=== PATIENT | male | born 1950 | race Caucasian/White ===

== ENCOUNTER 2017-09-21 11:05 | Inpatient (IN) ==
[~2017-09-21 11:05] MED LIST: LEVOTHYROXINE 50 MCG PO SCH
[2017-09-21] MEDS ORDERED: Sod Chloride 0.9% Inj 1,000 ML IV.SIG ONE (11:29)
--- NOTE | 2017-09-21 11:49 | ED ---
HPI General Chief Complaint: Neuro Symptoms/Deficit Stated Complaint: Weakness Time Seen by Provider: 09/21/17 11:20 Source: patient, family and EMS Mode of arrival: EMS Limitations: altered mental status History of Present Illness HPI Narrative: 67-year-old male patient with history of previous seizures, diabetes, recent history of right ear infections with a ruptured eardrum on the right side, epistaxis, presents to the ER today brought in by family because over last weeks he has been declining sickly, having general weakness, today was lethargic, having trouble getting up on his own, and family states that his blood sugars have been high, he has not been giving himself insulin because he thinks that the infection is causing his blood sugars to be high. He has also had some left-sided weakness that family noticed since yesterday, and apparently has had this with his seizures in the past as well. They deny any recent fevers, chest pains, shortness of breath, vomiting, or other symptoms. Related Data Home Medications Medication Instructions Recorded Confirmed atorvastatin 80 mg PO DAILY 09/21/17 09/21/17 carbamazepine 200 mg PO TID 09/21/17 09/21/17 ciprofloxacin HCl [Cipro] 500 mg PO Q12H 09/21/17 09/21/17 ciprofloxacin-dexamethasone 5 drp RIGHT EAR BID 09/21/17 09/21/17 [Ciprodex] gabapentin 100 mg PO BID 09/21/17 09/21/17 insulin aspart U-100 24 unit SUB-Q DAILY 09/21/17 09/21/17 insulin aspart U-100 26 unit SUB-Q BID 09/21/17 09/21/17 insulin glargine 56 unit SUB-Q BID 09/21/17 09/21/17 levothyroxine 50 mcg PO DAILY 09/21/17 09/21/17 metformin 1,000 mg PO BID 09/21/17 09/21/17 Allergies Allergy/AdvReac Type Severity Reaction Status Date / Time No Known Allergies Allergy Unknown Uncoded 10/25/07 10:10 Review of Systems Except as stated in HPI: all other systems reviewed are negative (Limited because patient is a bit lethargic, information from family) [facility] Medical History Medical History Diabetes (Acute) High cholesterol (Acute) Hypertension (Acute) Hypothyroid (Acute) Seizure (Acute) Surgical History Surgical History History of placement of ear tubes (Acute) Social History Social History Substance History: No History of Abuse Smoking Status: Former smoker Tobacco Type: Smokeless Tobacco How Often Do You Have a Drink Containing Alcohol: Never Recent Travel in [facility] within the Last 8 Weeks: No Recent Out of Country Travel within the Last 8 Weeks: No Immunization History Tetanus Immunization: <5 Years Exam Narrative Exam Narrative: GENERAL: Well-developed elderly white male patient currently in moderate distress. Awake, lethargic. Appears to be oriented 3. SKIN: Focused skin assessment warm/dry. HEAD: Atraumatic. Normocephalic. EYES: Pupils equal and round. No scleral icterus. No injection or drainage. ENT: No nasal bleeding or discharge. Mucous membranes pink and moist. NECK: Trachea midline. No JVD. CARDIOVASCULAR: Regular rate and rhythm. No murmur appreciated. RESPIRATORY: No accessory muscle use. Clear to auscultation. Breath sounds equal bilaterally. GASTROINTESTINAL: Abdomen soft, non-tender, nondistended. Hepatic and splenic margins not palpable. MUSCULOSKELETAL: No obvious deformities. No clubbing. No cyanosis. No edema. NEUROLOGICAL: Awake and lethargic. No obvious cranial nerve deficits. Motor grossly within normal limits. Normal speech. PSYCHIATRIC: Appropriate mood and affect; insight and judgment poor. Course Hospital Course: Initial blood glucose was fairly elevated IV fluids are initiated in the ER. CT the brain did not show any signs of acute intracranial process was but does show sign of severe sinusitis. Lab work also shows leukocytosis of 14 with UTI , and IV antibiotics were initiated in the ER after cultures were done. Considering his left arm weakness, that the patient family states this started since last night, I am also putting him in for an aspirin just in case he may have some underlying stroke. EKG did not show any significant dysrhythmias or ST changes. He is reporting no chest pains. His troponin is mildly elevated. His BUN and creatinine is up as well, and troponin will need to be followed out. His ABG did show some mild acidosis, likely metabolic, and with anion gap , insulin was given in the ER. At this point, my plan would be to admit the patient for further evaluation and treatment. Case was discussed with [facility] resident service for admission. Initial Documented Vital Signs Temperature 98.6 F 09/21/17 11:09 Pulse Rate 95 H 09/21/17 11:09 Respiratory Rate 17 09/21/17 11:09 Blood Pressure 157/84 H 09/21/17 11:09 Pulse Oximetry 99 09/21/17 11:09 Last Documented Vital Signs Temperature 98.6 F 09/21/17 11:09 Pulse Rate 78 09/21/17 12:44 Respiratory Rate 16 09/21/17 12:44 Blood Pressure 174/84 H 09/21/17 12:44 Pulse Oximetry 100 09/21/17 12:44 Medical Decision Making Differential Diagnosis Differential Diagnosis: CVA versus sepsis versus electrolyte abnormalities versus HH NK Lab Data Result diagrams: 09/21/17 11:40 09/21/17 11:40 Lab Results 09/21/17 09/21/17 09/21/17 Range/Units 11:40 11:40 11:51 WBC 14.0 H (4.0-11.0) th/mm3 RBC 3.62 L (4.50-5.90) mil/mm3 Hgb 10.5 L (13.0-17.0) gm/dL Hct 32.1 L (39.0-51.0) % MCV 88.6 (80.0-100.0) fL MCH 29.1 (27.0-34.0) pg MCHC 32.8 (32.0-36.0) % RDW 13.3 (11.6-17.2) % Plt Count 318 (150-450) th/mm3 MPV 7.9 (7.0-11.0) fL Neut % (Auto) 78.2 H (16.0-70.0) % Lymph % (Auto) 10.2 (9.0-44.0) % Wright % (Auto) 10.6 H (0.0-8.0) % Eos % (Auto) 0.5 (0.0-4.0) % Baso % (Auto) 0.5 (0.0-2.0) % Neut # (Auto) 10.9 H (1.8-7.7) th/mm3 Lymph # (Auto) 1.4 (1.0-4.8) th/mm3 Wright # (Auto) 1.5 H (0.0-0.9) th/mm3 Eos # (Auto) 0.1 (0.0-0.4) th/mm3 Baso # (Auto) 0.1 (0.0-0.2) th/mm3 WBC Differential . Differential Comment Auto diff final Puncture Site Patient Temperature O2 Saturation (90-100) % ABG pH (7.380-7.420) ABG pCO2 (38-42) mmHg ABG pO2 (61-120) mmHg ABG HCO3 (22-26) mmol/L ABG O2 Content (12.0-20.0) Vol % ABG Base Excess (-2-2) mmol/L ABG Methemoglobin (0-2) % Misbah Test Hemoglobin (12.0-16.0) G/DL Carboxyhemoglobin (0-4) % O2 Delivery Device Inspired O2 % Critical Value Sodium 125 L (136-145) meq/L Potassium 4.4 (3.5-5.1) meq/L Chloride 91 L (98-107) meq/L Carbon Dioxide 15.8 L (21.0-32.0) meq/L Anion Gap 18 H (5-15) meq/L BUN 40 H (7-18) mg/dL Creatinine 1.86 H (0.60-1.30) mg/dL Estimated GFR 37 L (>89) mL/min Random Glucose 600 H* (74-106) mg/dL Calcium 8.8 (8.5-10.1) mg/dL Total Bilirubin 0.5 (0.2-1.0) mg/dL AST 13 L (15-37) U/L ALT 11 L (12-78) U/L Alkaline Phosphatase 77 (45-117) U/L Lactate Dehydrogenase 163 (87-241) U/L Troponin I 0.41 H (0.02-0.05) ng/mL Total Protein 8.1 (6.4-8.2) g/dL Albumin 1.8 L (3.4-5.0) g/dL Urine Color Yellow (Yellw/Straw) Urine Clarity Hazy H (Clear) Urine pH 5.0 (5.0-8.5) Ur Specific [place] 1.021 (1.002-1.035) Urine Protein 30 H (Neg-Trace) mg/dL Urine Glucose (UA) 500 or greater (Negative) mg/dL Urine Ketones 80 or greater (Negative) mg/dL Urine Occult Blood Large H (Negative) Urine Nitrate Negative (Negative) Urine Bilirubin Negative (Negative) Urine Urobilinogen Less than 2 (Less than 2) mg/dL Ur Leukocyte Esterase Trace H (Negative) Urine RBC 39 H (0-3) /hpf Urine WBC 24 H (0-5) /hpf Urine Bacteria Occasional H (None) /hpf Urine Mucus Few H (Occasional) /lpf Micro UA Comment Culture indicated Urine Culture Comments Culture indicated 09/21/17 Range/Units 12:00 WBC (4.0-11.0) th/mm3 RBC (4.50-5.90) mil/mm3 Hgb (13.0-17.0) gm/dL Hct (39.0-51.0) % MCV (80.0-100.0) fL MCH (27.0-34.0) pg MCHC (32.0-36.0) % RDW (11.6-17.2) % Plt Count (150-450) th/mm3 MPV (7.0-11.0) fL Neut % (Auto) (16.0-70.0) % Lymph % (Auto) (9.0-44.0) % Wright % (Auto) (0.0-8.0) % Eos % (Auto) (0.0-4.0) % Baso % (Auto) (0.0-2.0) % Neut # (Auto) (1.8-7.7) th/mm3 Lymph # (Auto) (1.0-4.8) th/mm3 Wright # (Auto) (0.0-0.9) th/mm3 Eos # (Auto) (0.0-0.4) th/mm3 Baso # (Auto) (0.0-0.2) th/mm3 WBC Differential Differential Comment Puncture Site Left radial Patient Temperature 98.6 O2 Saturation 95 (90-100) % ABG pH 7.36 L (7.380-7.420) ABG pCO2 26 L (38-42) mmHg ABG pO2 110 (61-120) mmHg ABG HCO3 14 L* (22-26) mmol/L ABG O2 Content 13.3 (12.0-20.0) Vol % ABG Base Excess -10.2 L (-2-2) mmol/L ABG Methemoglobin 0.8 (0-2) % Misbah Test Y Hemoglobin 9.8 L (12.0-16.0) G/DL Carboxyhemoglobin 2.2 (0-4) % O2 Delivery Device Ra Inspired O2 21 % Critical Value Yes Sodium (136-145) meq/L Potassium (3.5-5.1) meq/L Chloride (98-107) meq/L Carbon Dioxide (21.0-32.0) meq/L Anion Gap (5-15) meq/L BUN (7-18) mg/dL Creatinine (0.60-1.30) mg/dL Estimated GFR (>89) mL/min Random Glucose (74-106) mg/dL Calcium (8.5-10.1) mg/dL Total Bilirubin (0.2-1.0) mg/dL AST (15-37) U/L ALT (12-78) U/L Alkaline Phosphatase (45-117) U/L Lactate Dehydrogenase (87-241) U/L Troponin I (0.02-0.05) ng/mL Total Protein (6.4-8.2) g/dL Albumin (3.4-5.0) g/dL Urine Color (Yellw/Straw) Urine Clarity (Clear) Urine pH (5.0-8.5) Ur Specific [place] (1.002-1.035) Urine Protein (Neg-Trace) mg/dL Urine Glucose (UA) (Negative) mg/dL Urine Ketones (Negative) mg/dL Urine Occult Blood (Negative) Urine Nitrate (Negative) Urine Bilirubin (Negative) Urine Urobilinogen (Less than 2) mg/dL Ur Leukocyte Esterase (Negative) Urine RBC (0-3) /hpf Urine WBC (0-5) /hpf Urine Bacteria (None) /hpf Urine Mucus (Occasional) /lpf Micro UA Comment Urine Culture Comments Imaging Data Radiologist's impression: Chest X-Ray 09/21/17 11:29 CONCLUSION: No acute cardiopulmonary disease. 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 Extensive opacification of the patient's right nasal cavity extending into the nasopharynx and possibility of a nasopharyngeal mass or sinonasal polyposis should be entertained and the right maxillary sinus completely opacified also due to chronic sinusitis. Discharge Plan Discharge Details Anticipated Discharge Date: 09/21/17 Physicians Team ED Provider: Meghna Watson Primary Care Provider: [facility] /Orders / Referrals /Forms Prescriptions: No Action carbamazepine 200 mg Tablet 200 mg PO TID RF: 0 gabapentin 100 mg Capsule 100 mg PO BID RF: 0 insulin aspart U-100 100 unit/mL Cartridge 26 unit SUB-Q BID RF: 0 atorvastatin 80 mg Tablet 80 mg PO DAILY RF: 0 insulin glargine 100 unit/mL Solution 56 unit SUB-Q BID RF: 0 metformin 1,000 mg Tablet 1,000 mg PO BID RF: 0 insulin aspart U-100 100 unit/mL Cartridge 24 unit SUB-Q DAILY RF: 0 levothyroxine 50 mcg Capsule 50 mcg PO DAILY RF: 0 ciprofloxacin HCl [Cipro] 500 mg Tablet 500 mg PO Q12H RF: 0 ciprofloxacin-dexamethasone [Ciprodex] 0.3-0.1 % Drops,Suspension 5 drp Right Ear BID RF: 0 Discharge Interventions Interventions: Vital Signs Last Done: 09/21/17 12:44 Status ED Status: In Room
--- NOTE | 2017-09-21 11:53 | XR ---
EXAM DATE: 09/21/2017 11:48 AM EDT AGE/SEX: 67 years / Male INDICATIONS: Shortness of breath. CLINICAL DATA: This is the patient's initial encounter. Patient reports that signs and symptoms have been present for 1 day and indicates a pain score of 0/10. MEDICAL/SURGICAL HISTORY: Diabetes. Hypertension. Hypothyroidism. Hypotension. Seizure. Non e. COMPARISON: No prior exams available for comparison. FINDINGS: The lungs are clear without infiltrate, nodule, or mass. There is no appreciable pleural effusion for technique. Heart and mediastinum are unremarkable. CONCLUSION: No acute cardiopulmonary disease. Electronically signed by: Paulina Xiong MD 09/21/2017 11:52 AM EDT
[2017-09-21 12:01] LABS: Baso # (Auto) 0.1 th/mm3 (0.0-0.2); Baso % (Auto) 0.5 % (0.0-2.0); Eos # (Auto) 0.1 th/mm3 (0.0-0.4); Eos % (Auto) 0.5 % (0.0-4.0); Hematocrit 32.1 % (39.0-51.0); Hemoglobin 10.5 gm/dL (13.0-17.0); Lymph # (Auto) 1.4 th/mm3 (1.0-4.8); Lymph % (Auto) 10.2 % (9.0-44.0); Mean Corpuscular HGB Conc 32.8 % (32.0-36.0); Mean Corpuscular Hemoglobin 29.1 pg (27.0-34.0); Mean Corpuscular Volume 88.6 fL (80.0-100.0); Mean Platelet Volume 7.9 fL (7.0-11.0); Mono # (Auto) 1.5 th/mm3 (0.0-0.9); Mono % (Auto) 10.6 % (0.0-8.0); Neut # (Auto) 10.9 th/mm3 (1.8-7.7); Neut % (Auto) 78.2 % (16.0-70.0); Platelet Count 318 th/mm3 (150-450); Red Blood Count 3.62 mil/mm3 (4.50-5.90); Red Cell Distribution Width 13.3 % (11.6-17.2)
[2017-09-21 12:20] LABS: Alanine Aminotransferase 11 U/L (12-78); Albumin 1.8 g/dL (3.4-5.0); Anion Gap 18 meq/L (5-15); Aspartate Aminotransferase 13 U/L (15-37); Blood Urea Nitrogen 40 mg/dL (7-18); Calcium 8.8 mg/dL (8.5-10.1); Carbon Dioxide 15.8 meq/L (21.0-32.0); Chloride 91 meq/L (98-107); Glomerular Filtration Rate 37 mL/min (>89); Potassium 4.4 meq/L (3.5-5.1); Sodium 125 meq/L (136-145)
[2017-09-21 12:23] LABS: Lactate Dehydrogenase 163 U/L (87-241)
[2017-09-21 12:24] LABS: Alkaline Phosphatase 77 U/L (45-117); Total Protein 8.1 g/dL (6.4-8.2); Troponin I 0.41 ng/mL (0.02-0.05)
[2017-09-21 12:24] LABS: ABG Base Excess -10.2 mmol/L (-2-2); ABG PCO2 26 mmHg (38-42); ABG PO2 110 mmHg (61-120)
[2017-09-21 12:25] LABS: Bacteria,Urine Occasional /hpf; Bilirubin,Urine Negative (Negative); Clarity,Urine Hazy (Clear); Color,Urine Yellow (Yellw/Straw); Glucose,Urine (UA) 500 or Greater mg/dL (Negative); Leukocyte Esterase,Urine Trace (Negative); Mucus,Urine Few /lpf (Occasional); Nitrite,Urine Negative (Negative); Specific Gravity,Urine 1.021 (1.002-1.035)
[2017-09-21 12:28] LABS: Glucose,Random 600 mg/dL (74-106)
[2017-09-21] MEDS ORDERED: Piperacil/Tazo 3.375 GM Premix 50 ML IV.SIG ONE (12:33)
--- NOTE | 2017-09-21 12:59 | CT ---
EXAM DATE: 09/21/2017 12:49 PM EDT AGE/SEX: 67 years / Male INDICATIONS: Altered mental status, left arm weakness. CLINICAL DATA: This is the patient's initial encounter. Patient reports that signs and symptoms have been present for 1 day and indicates a pain score of Nonresponsive. MEDICAL/SURGICAL HISTORY: Hypothyroidism. Diabetes. Hypertension. None. RADIATION DOSE: 56.35 CTDI (mGy) COMPARISON: No prior exams available for comparison. TECHNIQUE: CT of the head without contrast. Using automated exposure control and adjustment of the mA and/or kV according to patient size, radiation dose was kept as low as reasonably achievable to ob tain optimal diagnostic quality images. DICOM format image data is available electronically for revi ew and comparison. FINDINGS: There is no evidence for intracranial hemorrhage, mass effect, mass lesions, or edema. The visualize d bony structures appear intact. Slight degree of brain atrophy is seen. Moderate periventricular whi te matter changes are seen nonspecific mostly consistent with chronic small vessel ischemic changes. There are no signs of acute infarction for technique. There are areas of lacunar infarctions in the left basal ganglia. The right sphenoid sinus is completely opacified with dense inspissated mucus wit hin it with opacification of the patient's right nasal cavity extending all the way back into the kristofer opharynx. Possibility of a nasopharyngeal mass or polyposis is not excluded. CONCLUSION: Chronic small vessel ischemic and atrophic changes. Extensive opacification of the patient's right nasal cavity extending into the nasopharynx and possib ility of a nasopharyngeal mass or sinonasal polyposis should be entertained and the right maxillary s inus completely opacified also due to chronic sinusitis. Electronically signed by: Paulina Xiong MD 09/21/2017 12:58 PM EDT
[2017-09-21] MEDS ORDERED: Aspirin 325 MG Tablet PO ONE (13:17)
--- NOTE | 2017-09-21 14:07 | P.HPFP ---
History of Present Illness Primary Care Physician: Physician [facility] <Azam Hoyt - 09/21/17 21:24> Physician [facility] <Saul Mike - 09/21/17 14:07> History of Present Illness: 67-year-old male presenting to the emergency department for progressive weakness , fatigue, and relatively acute onset left arm weakness. He has a history of a recent chronic right ear/sinus infection for which he has seen ENT several times and recently had a tympanostomy tube placed and has been on several rounds of antibiotics. Last week, he was seen by ENT and had a nasal endoscope performed and since then has had bleeding from both the right nares and right ear, uncontrolled and elevated blood sugars, increased thirst as well as increased urination. During this time he also endorses a decreased appetite. Over the last 2 days, he has had progressive weakness of his left arm that acutely worsened overnight and so the family decided to bring him into the emergency department this morning. The patient and the family deny any acute confusion, fevers or chills, slurred speech, or facial asymmetry. During this time, he has been having elevated blood sugars but the patient has not increased his insulin management stating that he felt the increased blood sugars were due to the infection and treatment, he actually has been taking less of his insulin recently and is unable to explain why. He has a history of seizure disorder and his son states that he has had seizures 3 in the past and all have been associated with left arm weakness similar to his presentation now but not as pronounced previously. <Azam Hoyt - 09/21/17 21:24> Patient is a 67-year-old male with past history of diabetes, sleep apnea, seizures, hypertension, hypothyroidism who presents today for weakness. He and his , son were present and gave information. They report that he has been increasingly weak over the past month. They believe it all started several months ago with chronic ear infections. He has had several course of antibiotics, tympanostomy in June, a recent nasal scope for infection last week. They report that he has been bleeding of his nose and right ear occasionally. This morning they decided to come to the ED because he could not get out of bed. He has weakness in his left arm, however son reports that this sometimes occurs after he has a seizure. He has had 3 seizures in the past, none for a year or 2. Well controlled on his medications. They deny any acute confusion, slurred speech. They endorse drowsiness. He denies nausea, vomiting, fever, chills, abdominal pain, chest pain, shortness of breath, left arm or jaw pain, lightheadedness, dizziness, diaphoresis, cough, recent seizure-like activity. His family also reports has been poorly controlling his diabetes. He says he takes Lantus nightly, however reports is only been taking it half the nights. His family reports is most likely less than this, however he continues to take his metformin. He denies any change in urinary symptoms, change in bowel habits. Endorses increased thirst. <Saul Mike 09/21/17 19:58> - Diagnosis (1) DKA (diabetic ketoacidoses) (2) Chronic sinusitis (3) Acute UTI (4) Weakness (5) Elevated troponin (6) Hyponatremia (7) History of seizure (8) Hypothyroid (9) HTN (hypertension) (10) HLD (hyperlipidemia) <Azam Hoyt 09/21/17 21:24> (1) DKA (diabetic ketoacidoses) (2) Chronic sinusitis (3) Acute UTI (4) Weakness (5) Elevated troponin (6) Hyponatremia (7) History of seizure (8) Hypothyroid (9) HTN (hypertension) (10) HLD (hyperlipidemia) <Saul Mike 09/21/17 20:00> Inpatient Certification: I certify that the inpatient services were ordered in accordance with Medicare regulations governing the order. This includes certification that hospital inpatient services are reasonable and necessary and in the case of services not specified as inpatient-only under 42 CFR 419.22(n), that they are appropriately provided as inpatient services in accordance to with the 2-midnight benchmark under 43 CFR 412.3(e) <Azam Hoyt 09/21/17 21:24> I certify that the inpatient services were ordered in accordance with Medicare regulations governing the order. This includes certification that hospital inpatient services are reasonable and necessary and in the case of services not specified as inpatient-only under 42 CFR 419.22(n), that they are appropriately provided as inpatient services in accordance to with the 2-midnight benchmark under 43 CFR 412.3(e) <Saul Mike 09/21/17 19:58> Review of Systems Medical: DM Sleep apnea, not using mask Seizures HTN HLD Hypothyroid Surgery: none Family: Mother: [place] Father: [place] Social EtOH: occasional Smoking: quit 25 years, smoked 20 years, unknown amount Drugs- no <Saul Mike 09/21/17 19:58> Constitutional: Reports daytime sleepiness, Reports lack of energy, Reports weakness, Reports weight loss (30 pounds in the last 3 months), Denies body ache (s), Denies chills, Denies excessive sweating <Saul Mike 09/21/17 19: 58> Eyes: Denies blind spots, Denies blurry vision, Denies change in vision, Denies double vision, Denies loss of vision, Denies sensitivity to light <Saul Mike 09/21/17 19:58> Ears, Nose, Mouth, and Throat: Reports ear discharge, Reports nosebleed, Denies abnormal hearing, Denies ear pain <Saul Mike 09/21/17 19:58> Cardiovascular: Denies chest pain, Denies excessive sweating, Denies fainting, Denies fast heart rate, Denies foot swelling, Denies generalized swelling, Denies irregular heart rhythm, Denies leg swelling, Denies lightheadedness, Denies radiating jaw, neck or arm pain, Denies rapid, pounding, or irregular heartbeat, Denies shortness of breath, Denies shortness of breath when lying down <Saul Mike 09/21/17 19:58> Respiratory: Denies chest congestion, Denies cough, Denies shortness of breath <Saul Mike 09/21/17 19:58> Gastrointestinal: Denies abdominal pain, Denies black, tarry stools, Denies bright, red blood in stools, Denies change in bowel habits, Denies change in stools, Denies constipation, Denies loose stools, Denies nausea, Denies vomiting <Saul Mike 09/21/17 19:58> Genitourinary: Denies difficulty urinating, Denies painful urination, Denies urinary frequency, Denies urinary urgency <Saul Mike 09/21/17 19:58> Musculoskeletal: Denies back pain, Denies numbness <Saul Mike 19:58> Skin/Breast: Denies new lesions, Denies skin ulcer, Denies sores <Saul Mike 09/21/17 19:58> Neurologic: Reports unsteadiness, Reports weakness, Denies abnormal hearing, Denies abnormal movements, Denies abnormal speech, Denies confusion, Denies dizziness, Denies fainting, Denies numbness, Denies other visual disturbances, Denies convulsions, Denies seizure-like activity, Denies tingling, Denies tingling/numbness/burning sensations, Denies tremor(s) <Saul Mike 19:58> Endocrine: Reports increased thirst, Denies excessive sweating <Saul Mike 09/21/17 19:58> Hematologic/Lymphatic: Denies easy bleeding, Denies easy bruising <Saul Mike 09/21/17 19:58> Allergic/Immunologic: Denies hives, Denies wheezing <Saul Mike 19:58> PMFSH - History History Provided By: Patient, Family Member <Saul Mike 09/21/17 14:07 > - Medical History Medical History: Medical History (Last Reviewed 09/21/17 @ 11:48 by Meghna Watson MD) Diabetes High cholesterol Hypertension Hypothyroid Seizure <Azam Hoyt 09/21/17 21:24> Medical History (Last Reviewed 09/21/17 @ 11:48 by Meghna Watson MD) Diabetes High cholesterol Hypertension Hypothyroid Seizure <Saul Mike 09/21/17 14:07> - Surgical History Surgical History: Surgical History (Last Reviewed 09/21/17 @ 11:48 by Meghna Watson MD) History of placement of ear tubes <Azam Hoyt 09/21/17 21:24> Surgical History (Last Reviewed 09/21/17 @ 11:48 by Meghna Watson MD) History of placement of ear tubes <Saul Mike 09/21/17 14:07> - Tobacco History Smoking Status: Former smoker <Saul Mike 09/21/17 14:07> Tobacco Type: Smokeless Tobacco <Saul Mike - 09/21/17 14:07> - Alcohol History How Often Do You Have a Drink Containing Alcohol: Never <Saul Mike - 14:07> - Substance Use History Substance History: No History of Abuse <Saul Mike - 09/21/17 14:07> - Travel History Recent Travel in the [facility] Within the Last 8 Weeks: No <AlphonsojasonDileep - 09/21 14:07> Recent Travel Out of the Country Within the Last 8 Weeks: No <Saul Mike - 09/21/17 14:07> - Immunization History Tetanus Immunization: <5 Years <AlphonsoSaul gomez - 09/21/17 14:07> Medications and Allergies Allergies Allergy/AdvReac Type Severity Reaction Status Date / Time No Known Allergies Allergy Unknown Uncoded 10/25/07 10:10 <Azam Hoyt - 09/21/17 21:24> Home Medications Medication Instructions Recorded Confirmed Type atorvastatin 80 mg PO DAILY 09/21/17 09/21/17 History carbamazepine 200 mg PO TID 09/21/17 09/21/17 History ciprofloxacin HCl [Cipro] 500 mg PO Q12H 09/21/17 09/21/17 History ciprofloxacin-dexamethasone 5 drp RIGHT EAR BID 09/21/17 09/21/17 History [Ciprodex] gabapentin 100 mg PO BID 09/21/17 09/21/17 History insulin aspart U-100 24 unit SUB-Q DAILY 09/21/17 09/21/17 History insulin aspart U-100 26 unit SUB-Q BID 09/21/17 09/21/17 History insulin glargine 56 unit SUB-Q BID 09/21/17 09/21/17 History levothyroxine 50 mcg PO DAILY 09/21/17 09/21/17 History metformin 1,000 mg PO BID 09/21/17 09/21/17 History <Azam Hoyt - 09/21/17 21:24> Active Medications: Active Medications Atorvastatin Calcium (Lipitor) 80 mg PO DAILY [facility] Carbamazepine (Tegretol) 200 mg PO TID [facility] Last Admin: 09/21/17 18:03 Dose: 200 mg Chlorhexidine Gluconate (Chlorhexidine 2% Cloth) 3 pack TOPICAL DAILY@0400 [facility] Stop: 09/27/17 03:59 Chlorhexidine Gluconate (Chlorhexidine 2% Cloth) 3 pack TOPICAL DAILY@0400 PRN PRN Reason: Extra cloth needed Stop: 09/27/17 03:59 Sodium Chloride (Ns Inj) 1,000 mls @ 250 mls/hr IV.CONT .Q4H [facility] Last Admin: 09/21/17 15:29 Dose: 250 mls/hr Potassium Chloride (Kcl 40 Meq Premix Inj) 40 meq in 100 mls @ 100 mls/hr IV.SIG Q1H PRN PRN Reason: for Initial K+ ONLY < 3.5 Potassium Chloride (Kcl 40 Meq Premix Inj) 40 meq in 100 mls @ 50 mls/hr IV.SIG Q2H PRN PRN Reason: for Subsequent K+ < 3.5 Potassium Chloride (Kcl 20 Meq Premix Inj) 20 meq in 100 mls @ 100 mls/hr IV.SIG Q1H PRN PRN Reason: for K+ 4.5 to 5 Potassium Chloride (Kcl 20 Meq Premix Inj) 20 meq in 100 mls @ 50 mls/hr IV.SIG Q2H PRN PRN Reason: for Initial K+ ONLY < 3.5 Potassium Chloride (Kcl 20 Meq Premix Inj) 20 meq in 100 mls @ 50 mls/hr IV.SIG Q2H PRN PRN Reason: for Subsequent K+ < 3.5 Potassium Chloride (Kcl 20 Meq Premix Inj) 20 meq in 100 mls @ 50 mls/hr IV.SIG Q2H PRN PRN Reason: for K+ 3.5 to 4.4 Last Infusion: 09/21/17 17:34 Dose: Infused Potassium Chloride (Kcl 20 Meq Premix Inj) 20 meq in 100 mls @ 50 mls/hr IV.SIG Q2H PRN PRN Reason: for K+ 4.5 to 5 Sodium Phosphate 15 mmol/ (Sodium Chloride) 105 mls @ 25 mls/hr IV.SIG UNSCH PRN PRN Reason: for Phosphate Level < 1.0 Dextrose/Sodium Chloride (D5w/Normal Saline Inj) 1,000 mls @ 200 mls/hr IV.CONT .Q5H [facility] Last Admin: 09/21/17 14:49 Dose: Not Given Potassium Chloride (Kcl 20 Meq Premix Inj) 20 meq in 100 mls @ 100 mls/hr IV.SIG Q1H PRN PRN Reason: for K+ 3.5 to 4.4 Insulin Human Regular 100 unit (/ Sodium Chloride) 100 mls @ 10 mls/hr IV.CONT TITRATE PRN; Protocol PRN Reason: See protocol Last Admin: 09/21/17 15:29 Dose: 10 units/hr, 10 mls/hr Ceftriaxone Sodium 2,000 mg/ (Sodium Chloride) 200 mls @ 200 mls/hr IV.SIG Q24H [facility] Pat Own Med: Levothyroxine 50mcg Capsule 0 each PO DAILY@0600 [facility] Sodium Bicarbonate (Sodium Bicarbonate 8.4% Inj) 100 meq IV.PUSH UNSCH PRN PRN Reason: for pH less than 6.9 Sodium Bicarbonate (Sodium Bicarbonate 8.4% Inj) 50 meq IV.PUSH UNSCH PRN PRN Reason: for pH 6.9 to 7.0 Sodium Chloride (Ns Flush) 2 ml IV.FLUSH PRN PRN PRN Reason: FLUSH AFTER USING IV ACCESS <Azam Hoyt - 09/21/17 21:24> Active Medications Sodium Chloride (Ns Flush) 2 ml IV.FLUSH PRN PRN PRN Reason: FLUSH AFTER USING IV ACCESS <Saul Mike - 09/21/17 14:07> Exam Vital signs: Vital Signs 09/21/17 11:09 09/21/17 11:30 09/21/17 12:44 Temperature 98.6 F Pulse Rate 95 H 81 78 Respiratory Rate 17 18 16 Blood Pressure 157/84 H 177/90 H 174/84 H Pulse Oximetry 99 98 100 09/21/17 13:30 09/21/17 13:44 09/21/17 15:00 Temperature Pulse Rate 81 81 81 Respiratory Rate 16 17 18 Blood Pressure 170/85 H 168/89 H 162/78 H Pulse Oximetry 100 100 99 09/21/17 16:55 09/21/17 18:00 09/21/17 20:00 Temperature 98.3 F Pulse Rate 68 70 Respiratory Rate 16 19 Blood Pressure 177/81 H Pulse Oximetry 99 97 Intake & Output 09/21/17 09/21/17 09/22/17 06:59 18:59 06:59 Intake Total 1150 / 1150 Output Total 0 / 0 Balance 1150 / 1150 Weight 101.605 kg Intake: IV 1150 / 1150 Zosyn 3.375 GM Premix 50 ML @ 50 / 50 100 mls/hr IV.SIG ONCE ONE Rx#: [id number] KCl 20 mEq Premix Inj 20 meq In 100 / 100 100 ml @ 50 mls/hr IV.SIG Q2H PRN Rx#:[id number] NS Inj 1,000 ML @ Wide Open IV. 1000 / 1000 SIG BOLUS ONE Rx#:[id number] Oral 0 / 0 Output: Urine 0 / 0 <Azam Hoyt - 09/21/17 21:24> Vital Signs 09/21/17 11:09 09/21/17 11:30 09/21/17 12:44 Temperature 98.6 F Pulse Rate 95 H 81 78 Respiratory Rate 17 18 16 Blood Pressure 157/84 H 177/90 H 174/84 H Pulse Oximetry 99 98 100 09/21/17 13:30 09/21/17 13:44 Temperature Pulse Rate 81 81 Respiratory Rate 16 17 Blood Pressure 170/85 H 168/89 H Pulse Oximetry 100 100 Intake & Output 09/20/17 09/21/17 09/21/17 18:59 06:59 18:59 Intake Total 1000 / 1000 Balance 1000 / 1000 Weight 101.605 kg Intake: IV 1000 / 1000 NS Inj 1,000 ML @ Wide Open IV. 1000 / 1000 SIG BOLUS ONE Rx#:[id number] <Saul Mike - 09/21/17 14:07> Narrative: General: Elderly male, lying in bed and appears lethargic Skin: Warm and dry without obvious lesions or breakdown HEENT: Mucous membranes tacky and appear dry, cranial nerves II through XII intact, PERRLA CV: Regular rate and rhythm without murmurs Respiratory: Clear to auscultation bilaterally without wheezes or rales/rhonchi GI: Abdomen soft, nondistended, nontender MSK: Extremities without clubbing, cyanosis, or edema Neurologic: Lethargic but easily arousable and answers questions appropriately. Facies are symmetric without obvious defect. He is able to raise his left arm , but has no control below the elbow and has a foot and ankle surgeon strength of 1/5. Bilateral lower extremities have 5/5 strength with hip flexion as well as knee flexion/ extension. Sensation appears intact in bilateral upper extremities. <Azam Hoyt - 09/21/17 21:24> GENERAL: Laying in bed, drowsy appearing SKIN: Warm and dry. HEAD: Atraumatic. Normocephalic. EYES: Pupils equal and round. No scleral icterus. No injection or drainage. ENT: Blood present at right nare. Mucous membranes pink and moist. Right ear with packing in place. NECK: Trachea midline. No JVD. CARDIOVASCULAR: Regular rate and rhythm. No rubs, murmurs, gallops. RESPIRATORY: No accessory muscle use. Clear to auscultation. Breath sounds equal bilaterally. GASTROINTESTINAL: Abdomen soft, non-tender, nondistended. Hepatic and splenic margins not palpable. MUSCULOSKELETAL: Extremities without clubbing, cyanosis, or edema. No obvious deformities. NEUROLOGICAL: Awake and alert. Difficulty shrugging left shoulder otherwise CN II through XII intact. Motor grossly within normal limits. Five out of 5 muscle strength in the legs, 4/5 in left arm, 5/5 in right arm. Slow speech, not slurred. PSYCHIATRIC: Lethargic appearing, able to answer questions appropriately, alert oriented 5 <Saul Mike - 09/21/17 20:57> Results - Labs Result diagrams: 09/21/17 11:40 09/21/17 19:45 <Azam Hoyt - 09/21/17 21:24> Abnormal lab results 09/21/17 09/21/17 09/21/17 Range/Units 11:40 11:40 11:40 WBC 14.0 H (4.0-11.0) th/mm3 RBC 3.62 L (4.50-5.90) mil/mm3 Hgb 10.5 L (13.0-17.0) gm/dL Hct 32.1 L (39.0-51.0) % Neut % (Auto) 78.2 H (16.0-70.0) % [place] % (Auto) 10.6 H (0.0-8.0) % Neut # (Auto) 10.9 H (1.8-7.7) th/mm3 [place] # (Auto) 1.5 H (0.0-0.9) th/mm3 ABG pH (7.380-7.420) ABG pCO2 (38-42) mmHg ABG HCO3 (22-26) mmol/L ABG Base Excess (-2-2) mmol/L Hemoglobin (12.0-16.0) G/DL Sodium 125 L (136-145) meq/L Chloride 91 L (98-107) meq/L Carbon Dioxide 15.8 L (21.0-32.0) meq/L Anion Gap 18 H (5-15) meq/L BUN 40 H (7-18) mg/dL Creatinine 1.86 H (0.60-1.30) mg/dL Estimated GFR 37 L (>89) mL/min POC Glucose (68-110) mg/dl Random Glucose 600 H* (74-106) mg/dL Calcium (8.5-10.1) mg/dL AST 13 L (15-37) U/L ALT 11 L (12-78) U/L Troponin I 0.41 H (0.02-0.05) ng/mL Albumin 1.8 L (3.4-5.0) g/dL Lipase 71 L (73-393) U/L Beta-Hydroxybutyric Acd 6.30 H (0.00-0.39) mmol/L Urine Clarity (Clear) Urine Protein (Neg-Trace) mg/dL Urine Occult Blood (Negative) Ur Leukocyte Esterase (Negative) Urine RBC (0-3) /hpf Urine WBC (0-5) /hpf Urine Bacteria (None) /hpf Urine Mucus (Occasional) /lpf 09/21/17 09/21/17 09/21/17 Range/Units 11:51 12:00 13:47 WBC (4.0-11.0) th/mm3 RBC (4.50-5.90) mil/mm3 Hgb (13.0-17.0) gm/dL Hct (39.0-51.0) % Neut % (Auto) (16.0-70.0) % [place] % (Auto) (0.0-8.0) % Neut # (Auto) (1.8-7.7) th/mm3 [place] # (Auto) (0.0-0.9) th/mm3 ABG pH 7.36 L (7.380-7.420) ABG pCO2 26 L (38-42) mmHg ABG HCO3 14 L* (22-26) mmol/L ABG Base Excess -10.2 L (-2-2) mmol/L Hemoglobin 9.8 L (12.0-16.0) G/DL Sodium (136-145) meq/L Chloride (98-107) meq/L Carbon Dioxide (21.0-32.0) meq/L Anion Gap (5-15) meq/L BUN (7-18) mg/dL Creatinine (0.60-1.30) mg/dL Estimated GFR (>89) mL/min POC Glucose 552 H* (68-110) mg/dl Random Glucose (74-106) mg/dL Calcium (8.5-10.1) mg/dL AST (15-37) U/L ALT (12-78) U/L Troponin I (0.02-0.05) ng/mL Albumin (3.4-5.0) g/dL Lipase (73-393) U/L Beta-Hydroxybutyric Acd (0.00-0.39) mmol/L Urine Clarity Hazy H (Clear) Urine Protein 30 H (Neg-Trace) mg/dL Urine Occult Blood Large H (Negative) Ur Leukocyte Esterase Trace H (Negative) Urine RBC 39 H (0-3) /hpf Urine WBC 24 H (0-5) /hpf Urine Bacteria Occasional H (None) /hpf Urine Mucus Few H (Occasional) /lpf 09/21/17 09/21/17 09/21/17 Range/Units 18:09 18:52 19:43 WBC (4.0-11.0) th/mm3 RBC (4.50-5.90) mil/mm3 Hgb (13.0-17.0) gm/dL Hct (39.0-51.0) % Neut % (Auto) (16.0-70.0) % [place] % (Auto) (0.0-8.0) % Neut # (Auto) (1.8-7.7) th/mm3 [place] # (Auto) (0.0-0.9) th/mm3 ABG pH (7.380-7.420) ABG pCO2 (38-42) mmHg ABG HCO3 (22-26) mmol/L ABG Base Excess (-2-2) mmol/L Hemoglobin (12.0-16.0) G/DL Sodium (136-145) meq/L Chloride (98-107) meq/L Carbon Dioxide (21.0-32.0) meq/L Anion Gap (5-15) meq/L BUN (7-18) mg/dL Creatinine (0.60-1.30) mg/dL Estimated GFR (>89) mL/min POC Glucose 385 H 389 H 362 H (68-110) mg/dl Random Glucose (74-106) mg/dL Calcium (8.5-10.1) mg/dL AST (15-37) U/L ALT (12-78) U/L Troponin I (0.02-0.05) ng/mL Albumin (3.4-5.0) g/dL Lipase (73-393) U/L Beta-Hydroxybutyric Acd (0.00-0.39) mmol/L Urine Clarity (Clear) Urine Protein (Neg-Trace) mg/dL Urine Occult Blood (Negative) Ur Leukocyte Esterase (Negative) Urine RBC (0-3) /hpf Urine WBC (0-5) /hpf Urine Bacteria (None) /hpf Urine Mucus (Occasional) /lpf 09/21/17 09/21/17 Range/Units 19:45 19:45 WBC (4.0-11.0) th/mm3 RBC (4.50-5.90) mil/mm3 Hgb (13.0-17.0) gm/dL Hct (39.0-51.0) % Neut % (Auto) (16.0-70.0) % [place] % (Auto) (0.0-8.0) % Neut # (Auto) (1.8-7.7) th/mm3 [place] # (Auto) (0.0-0.9) th/mm3 ABG pH (7.380-7.420) ABG pCO2 (38-42) mmHg ABG HCO3 (22-26) mmol/L ABG Base Excess (-2-2) mmol/L Hemoglobin (12.0-16.0) G/DL Sodium 133 L (136-145) meq/L Chloride (98-107) meq/L Carbon Dioxide (21.0-32.0) meq/L Anion Gap (5-15) meq/L BUN 36 H (7-18) mg/dL Creatinine 1.77 H (0.60-1.30) mg/dL Estimated GFR 39 L (>89) mL/min POC Glucose (68-110) mg/dl Random Glucose 319 H D (74-106) mg/dL Calcium 8.1 L (8.5-10.1) mg/dL AST (15-37) U/L ALT (12-78) U/L Troponin I 0.39 H (0.02-0.05) ng/mL Albumin (3.4-5.0) g/dL Lipase (73-393) U/L Beta-Hydroxybutyric Acd (0.00-0.39) mmol/L Urine Clarity (Clear) Urine Protein (Neg-Trace) mg/dL Urine Occult Blood (Negative) Ur Leukocyte Esterase (Negative) Urine RBC (0-3) /hpf Urine WBC (0-5) /hpf Urine Bacteria (None) /hpf Urine Mucus (Occasional) /lpf Short CBC 09/21/17 Range/Units 11:40 WBC 14.0 H (4.0-11.0) th/mm3 Hgb 10.5 L (13.0-17.0) gm/dL Hct 32.1 L (39.0-51.0) % Plt Count 318 (150-450) th/mm3 BMP 09/21/17 09/21/17 11:40 19:45 Sodium 125 L 133 L Potassium 4.4 4.2 Chloride 91 L 100 D Carbon Dioxide 15.8 L 22.8 BUN 40 H 36 H Creatinine 1.86 H 1.77 H Calcium 8.8 8.1 L Cardiac Enzymes 09/21/17 09/21/17 Range/Units 11:40 19:45 Troponin I 0.41 H 0.39 H (0.02-0.05) ng/mL Liver Function 09/21/17 Range/Units 11:40 Total Bilirubin 0.5 (0.2-1.0) mg/dL AST 13 L (15-37) U/L ALT 11 L (12-78) U/L Alkaline Phosphatase 77 (45-117) U/L Albumin 1.8 L (3.4-5.0) g/dL Urine 09/21/17 Range/Units 11:51 Urine Color Yellow (Yellw/Straw) Urine Clarity Hazy H (Clear) Urine pH 5.0 (5.0-8.5) Ur Specific [place] 1.021 (1.002-1.035) Urine Protein 30 H (Neg-Trace) mg/dL Urine Glucose (UA) 500 or greater (Negative) mg/dL <Azam Hoyt - 09/21/17 21:24> Abnormal lab results 09/21/17 09/21/17 09/21/17 Range/Units 11:40 11:40 11:51 WBC 14.0 H (4.0-11.0) th/mm3 RBC 3.62 L (4.50-5.90) mil/mm3 Hgb 10.5 L (13.0-17.0) gm/dL Hct 32.1 L (39.0-51.0) % Neut % (Auto) 78.2 H (16.0-70.0) % [place] % (Auto) 10.6 H (0.0-8.0) % Neut # (Auto) 10.9 H (1.8-7.7) th/mm3 [place] # (Auto) 1.5 H (0.0-0.9) th/mm3 ABG pH (7.380-7.420) ABG pCO2 (38-42) mmHg ABG HCO3 (22-26) mmol/L ABG Base Excess (-2-2) mmol/L Hemoglobin (12.0-16.0) G/DL Sodium 125 L (136-145) meq/L Chloride 91 L (98-107) meq/L Carbon Dioxide 15.8 L (21.0-32.0) meq/L Anion Gap 18 H (5-15) meq/L BUN 40 H (7-18) mg/dL Creatinine 1.86 H (0.60-1.30) mg/dL Estimated GFR 37 L (>89) mL/min POC Glucose (68-110) mg/dl Random Glucose 600 H* (74-106) mg/dL AST 13 L (15-37) U/L ALT 11 L (12-78) U/L Troponin I 0.41 H (0.02-0.05) ng/mL Albumin 1.8 L (3.4-5.0) g/dL Urine Clarity Hazy H (Clear) Urine Protein 30 H (Neg-Trace) mg/dL Urine Occult Blood Large H (Negative) Ur Leukocyte Esterase Trace H (Negative) Urine RBC 39 H (0-3) /hpf Urine WBC 24 H (0-5) /hpf Urine Bacteria Occasional H (None) /hpf Urine Mucus Few H (Occasional) /lpf 09/21/17 09/21/17 Range/Units 12:00 13:47 WBC (4.0-11.0) th/mm3 RBC (4.50-5.90) mil/mm3 Hgb (13.0-17.0) gm/dL Hct (39.0-51.0) % Neut % (Auto) (16.0-70.0) % [place] % (Auto) (0.0-8.0) % Neut # (Auto) (1.8-7.7) th/mm3 [place] # (Auto) (0.0-0.9) th/mm3 ABG pH 7.36 L (7.380-7.420) ABG pCO2 26 L (38-42) mmHg ABG HCO3 14 L* (22-26) mmol/L ABG Base Excess -10.2 L (-2-2) mmol/L Hemoglobin 9.8 L (12.0-16.0) G/DL Sodium (136-145) meq/L Chloride (98-107) meq/L Carbon Dioxide (21.0-32.0) meq/L Anion Gap (5-15) meq/L BUN (7-18) mg/dL Creatinine (0.60-1.30) mg/dL Estimated GFR (>89) mL/min POC Glucose 552 H* (68-110) mg/dl Random Glucose (74-106) mg/dL AST (15-37) U/L ALT (12-78) U/L Troponin I (0.02-0.05) ng/mL Albumin (3.4-5.0) g/dL Urine Clarity (Clear) Urine Protein (Neg-Trace) mg/dL Urine Occult Blood (Negative) Ur Leukocyte Esterase (Negative) Urine RBC (0-3) /hpf Urine WBC (0-5) /hpf Urine Bacteria (None) /hpf Urine Mucus (Occasional) /lpf Short CBC 09/21/17 Range/Units 11:40 WBC 14.0 H (4.0-11.0) th/mm3 Hgb 10.5 L (13.0-17.0) gm/dL Hct 32.1 L (39.0-51.0) % Plt Count 318 (150-450) th/mm3 BMP 09/21/17 11:40 Sodium 125 L Potassium 4.4 Chloride 91 L Carbon Dioxide 15.8 L BUN 40 H Creatinine 1.86 H Calcium 8.8 Cardiac Enzymes 09/21/17 Range/Units 11:40 Troponin I 0.41 H (0.02-0.05) ng/mL Liver Function 09/21/17 Range/Units 11:40 Total Bilirubin 0.5 (0.2-1.0) mg/dL AST 13 L (15-37) U/L ALT 11 L (12-78) U/L Alkaline Phosphatase 77 (45-117) U/L Albumin 1.8 L (3.4-5.0) g/dL Urine 09/21/17 Range/Units 11:51 Urine Color Yellow (Yellw/Straw) Urine Clarity Hazy H (Clear) Urine pH 5.0 (5.0-8.5) Ur Specific [place] 1.021 (1.002-1.035) Urine Protein 30 H (Neg-Trace) mg/dL Urine Glucose (UA) 500 or greater (Negative) mg/dL <Saul Mike 09/21/17 14:07> - Imaging Impressions Chest X-Ray 09/21/17 11:29 CONCLUSION: No acute cardiopulmonary disease. 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 Extensive opacification of the patient's right nasal cavity extending into the nasopharynx and possibility of a nasopharyngeal mass or sinonasal polyposis should be entertained and the right maxillary sinus completely opacified also due to chronic sinusitis. <Azam Hoyt - 09/21/17 21:24> Impressions Chest X-Ray 09/21/17 11:29 CONCLUSION: No acute cardiopulmonary disease. 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 Extensive opacification of the patient's right nasal cavity extending into the nasopharynx and possibility of a nasopharyngeal mass or sinonasal polyposis should be entertained and the right maxillary sinus completely opacified also due to chronic sinusitis. <Saul Mike 09/21/17 20:57> Caprini VTE Risk Assessment Caprini VTE Risk Assessment: Moderate/High Risk (score >= 2) <Saul Mike 09/21/17 20:57> Caprini Risk Assessment Model: Point Value = 1 Point Value = 2 Point Value = 3 Point Value = 5 Age 41-60 Minor surgery BMI > 25 kg/m2 Swollen legs Varicose veins or History of unexplained or recurrent spontaneous Oral contraceptives or hormone replacement Sepsis (< 1 month) Serious lung disease, including pneumonia (< 1 month) Abnormal pulmonary function Acute myocardial infarction Congestive heart failure (< 1 month) History of inflammatory bowel disease Medical patient at bed rest Age 61-74 Arthroscopic surgery Major open surgery (> 45 min) Laparoscopic surgery (> 45 min) Malignancy Confined to bed (> 72 hours) Immobilizing plaster cast Central venous access Age >= 75 History of VTE Family history of VTE Factor V Leiden Prothrombin [id number] Lupus anticoagulant Anticardiolipin antibodies Elevated serum homocysteine Heparin-induced thrombocytopenia Other congenital or acquired thrombophilia Stroke (< 1 month) Elective arthroplasty Hip, pelvis, or leg fracture Acute spinal cord injury (< 1 month) <Azam Hoyt - 09/21/17 21:24> Point Value = 1 Point Value = 2 Point Value = 3 Point Value = 5 Age 41-60 Minor surgery BMI > 25 kg/m2 Swollen legs Varicose veins or History of unexplained or recurrent spontaneous Oral contraceptives or hormone replacement Sepsis (< 1 month) Serious lung disease, including pneumonia (< 1 month) Abnormal pulmonary function Acute myocardial infarction Congestive heart failure (< 1 month) History of inflammatory bowel disease Medical patient at bed rest Age 61-74 Arthroscopic surgery Major open surgery (> 45 min) Laparoscopic surgery (> 45 min) Malignancy Confined to bed (> 72 hours) Immobilizing plaster cast Central venous access Age >= 75 History of VTE Family history of VTE Factor V Leiden Prothrombin [id number] Lupus anticoagulant Anticardiolipin antibodies Elevated serum homocysteine Heparin-induced thrombocytopenia Other congenital or acquired thrombophilia Stroke (< 1 month) Elective arthroplasty Hip, pelvis, or leg fracture Acute spinal cord injury (< 1 month) <Saul Mike - 09/21/17 20:57> Prophylaxis Regimen: Total Risk Factor Score Risk Level Prophylaxis Regimen 0-1 Low Early ambulation 2 Moderate Order ONE of the following: *Sequential Compression Device (SCD) *Heparin 5000 units SQ BID 3-4 Higher Order ONE of the following medications: *Heparin 5000 units SQ TID *Enoxaparin/Lovenox 40 mg SQ daily (WT < 150 kg, CrCl > 30 mL/min) *Enoxaparin/Lovenox 30 mg SQ daily (WT < 150 kg, CrCl > 10-29 mL/min) *Enoxaparin/Lovenox 30 mg SQ BID (WT < 150 kg, CrCl > 30 mL/min) AND/OR *Sequential Compression Device (SCD) 5 or more Highest Order ONE of the following medications: *Heparin 5000 units SQ TID (Preferred with Epidurals) *Enoxaparin/Lovenox 40 mg SQ daily (WT < 150 kg, CrCl > 30 mL/min) *Enoxaparin/Lovenox 30 mg SQ daily (WT < 150 kg, CrCl > 10-29 mL/min) *Enoxaparin/Lovenox 30 mg SQ BID (WT < 150 kg, CrCl > 30 mL/min) AND *Sequential Compression Device (SCD) <Azam Hoyt - 09/21/17 21:24> Total Risk Factor Score Risk Level Prophylaxis Regimen 0-1 Low Early ambulation 2 Moderate Order ONE of the following: *Sequential Compression Device (SCD) *Heparin 5000 units SQ BID 3-4 Higher Order ONE of the following medications: *Heparin 5000 units SQ TID *Enoxaparin/Lovenox 40 mg SQ daily (WT < 150 kg, CrCl > 30 mL/min) *Enoxaparin/Lovenox 30 mg SQ daily (WT < 150 kg, CrCl > 10-29 mL/min) *Enoxaparin/Lovenox 30 mg SQ BID (WT < 150 kg, CrCl > 30 mL/min) AND/OR *Sequential Compression Device (SCD) 5 or more Highest Order ONE of the following medications: *Heparin 5000 units SQ TID (Preferred with Epidurals) *Enoxaparin/Lovenox 40 mg SQ daily (WT < 150 kg, CrCl > 30 mL/min) *Enoxaparin/Lovenox 30 mg SQ daily (WT < 150 kg, CrCl > 10-29 mL/min) *Enoxaparin/Lovenox 30 mg SQ BID (WT < 150 kg, CrCl > 30 mL/min) AND *Sequential Compression Device (SCD) <Saul Mike - 09/21/17 14:07> Assessment and Plan - Assessment (1) DKA (diabetic ketoacidoses) Code(s): E13.10 - Other specified diabetes mellitus with ketoacidosis without coma Status: Acute Plan: Patient appears to be in DKA on arrival with a pH of 7.36, elevated anion gap of 18 with a glucose over 600, increased BUN/creatinine ratio and mental status changes -Placed on DKA protocol as above -Admit to the [facility] [place] for close monitoring -Patient will be made n.p.o. until anion gap closes and may transition from insulin drip Chest x-ray no acute process Blood cultures pending Urine cultures pending Monitor BMP every 4 hours to evaluate for electrolyte corrections (2) Chronic sinusitis Code(s): J32.9 - Chronic sinusitis, unspecified Status: Acute Plan: Chronic ear infection/sinusitis verified by CT scan -Recently had tympanostomy tube in place and is currently draining -Rocephin 2 g IV daily -Blood cultures pending (3) Acute UTI Code(s): N39.0 - Urinary tract infection, site not specified Status: Acute Plan: Urinalysis indicative of UTI -IV antibiotics as above with Rocephin -Urine culture pending (4) Weakness Code(s): R53.1 - Weakness Status: Acute Plan: Left arm weakness similar to previous seizures versus acute neurologic abnormality -Possibly secondary to DKA with neurologic findings Treatment for DKA as above -Consider MRI plus/minus EEG once stabilization for DKA occurs Patient currently n.p.o., may need swallow study prior to beginning a diet (5) Elevated troponin Code(s): R74.8 - Abnormal levels of other serum enzymes Status: Acute Plan: Initial troponin elevated at 0.41 but patient has no complaints of chest pain or EKG findings indicative of ACS -Trend troponins and EKGs -Most likely due to AK I with elevated creatinine and severe dehydration due to DKA (6) Hyponatremia Code(s): E87.1 - Hypo-osmolality and hyponatremia Status: Acute Plan: Hyponatremia of 125 on admission, corrected to 133 allowing for hyperglycemia -Monitor with BMPs every 4 hours with fluid resuscitation and treatment for DKA (7) History of seizure Code(s): Z87.898 - Personal history of other specified conditions Status: Chronic (8) Hypothyroid Code(s): E03.9 - Hypothyroidism, unspecified Status: Chronic (9) HTN (hypertension) Code(s): I10 - Essential (primary) hypertension Status: Chronic (10) HLD (hyperlipidemia) Code(s): E78.5 - Hyperlipidemia, unspecified Status: Chronic <Azam Hoyt - 09/21/17 21:24> (1) DKA (diabetic ketoacidoses) Code(s): E13.10 - Other specified diabetes mellitus with ketoacidosis without coma Status: Acute Plan: Patient presented with diabetic ketoacidosis. On admission glucose 600, pH 7.36 , anion gap 18. 6 units insulin given in ED. -Bolus of 10 units (0.1 units /kg) Novolin administered -insulin drip with DKA protocol -BMP every 4 hours -Monitor and correct electrolyte imbalance as needed (2) Chronic sinusitis Code(s): J32.9 - Chronic sinusitis, unspecified Status: Acute Plan: Patient with several month history of chronic sinusitis and ear infection. tympanostomy tube in place. -Rocephin 2 g per day (3) Acute UTI Code(s): N39.0 - Urinary tract infection, site not specified Status: Acute Plan: UTI on admission -Currently being treated with 2 g daily Rocephin for chronic ENT issues (4) Weakness Code(s): R53.1 - Weakness Status: Acute Plan: Patient with left upper arm weakness. May be normal status post seizure weakness. Possibly secondary to DKA. CT head normal. -Continue to correct DKA -EEG -Consider MRI after improvement of DKA (5) Elevated troponin Code(s): R74.8 - Abnormal levels of other serum enzymes Status: Acute Plan: Troponin elevated to 0.41 on admission. No acute chest symptoms. -Follow-up troponin -Monitor for signs of cardiac distress (6) Hyponatremia Code(s): E87.1 - Hypo-osmolality and hyponatremia Status: Acute Plan: Hyponatremia on admission of 125, corrected to 133 for hyperglycemia. Mild hyponatremia with pseudo-hyponatremia -We will monitor for now while correcting DKA (7) History of seizure Code(s): Z87.898 - Personal history of other specified conditions Status: Chronic Plan: History of seizures in the past. -Continue home carbamazepine (8) Hypothyroid Code(s): E03.9 - Hypothyroidism, unspecified Status: Chronic Plan: History of hypothyroidism. -Continue home levothyroxine (9) HTN (hypertension) Code(s): I10 - Essential (primary) hypertension Status: Chronic Plan: History of hypertension. -Continue home hypertension medications (10) HLD (hyperlipidemia) Code(s): E78.5 - Hyperlipidemia, unspecified Status: Chronic Plan: History of hyperlipidemia. -Continue home atorvastatin <Saul Mike - 09/21/17 20:00>
[2017-09-21] MEDS ORDERED: Sodium Phosphate Inj 15 MMOL in Sodium Chlor 0.9% Inj 100 ML IV.SIG PRN (14:23)
[2017-09-21] MEDS ORDERED: Potassium Chlor 40 mEq Premix 40 MEQ/100 ML PIGGYBACK IV.SIG PRN ×2 (14:23)
[2017-09-21] MEDS ORDERED: Potassium Chlor 20 mEq Premix 20 MEQ/100 ML PIGGYBACK IV.SIG PRN ×6 (14:23)
[2017-09-21] MEDS: Dextrose 5%/NaCl 0.9% Inj 1,000 ML IV.CONT SCH (14:49)
[2017-09-21] MEDS: Sod Chloride 0.9% Inj 1,000 ML IV.CONT SCH ×2 (15:29→21:37)
[2017-09-21 15:55] LABS: Beta Hydroxybutyric Acid 6.3 mmol/L (0.00-0.39)
[2017-09-21] MEDS ORDERED: Insulin Regular (For Infusion) 100 UNIT in Sodium Chlor 0.9% Inj 99 ML IV.CONT PRN (16:00)
[2017-09-21] MEDS: carBAMazepine 200 MG Tablet PO SCH (18:03)
[2017-09-21 20:55] LABS: Calcium 8.1 mg/dL (8.5-10.1); Carbon Dioxide 22.8 meq/L (21.0-32.0)
[2017-09-21 20:59] LABS: Potassium 4.2 meq/L (3.5-5.1)
[2017-09-22] MEDS: Dextrose 5%/NaCl 0.9% Inj 1,000 ML IV.CONT SCH (00:28)
[2017-09-22] MEDS ORDERED: DC previous DKA orders (HMC 1917) OTHER ONE (00:42)
[2017-09-22] MEDS ORDERED: DC Insulin drip 2 hrs post basal insulin dose OTHER ONE (00:42)
[2017-09-22] MEDS ORDERED: Dextrose 50% in Water 50 ML Vial IV.PUSH PRN (00:42)
[2017-09-22 01:26] LABS: Calcium 8.2 mg/dL (8.5-10.1)
[2017-09-22 04:00] LABS: Baso # (Auto) 0.1 th/mm3 (0.0-0.2); Baso % (Auto) 0.7 % (0.0-2.0); Eos # (Auto) 0.1 th/mm3 (0.0-0.4); Eos % (Auto) 1.1 % (0.0-4.0); Hematocrit 29.6 % (39.0-51.0); Hemoglobin 9.8 gm/dL (13.0-17.0); Lymph # (Auto) 1.2 th/mm3 (1.0-4.8); Lymph % (Auto) 8.4 % (9.0-44.0); Mean Corpuscular Hemoglobin 28.8 pg (27.0-34.0); Mean Corpuscular Volume 87.2 fL (80.0-100.0); Mono # (Auto) 1.5 th/mm3 (0.0-0.9); Mono % (Auto) 10.8 % (0.0-8.0); Platelet Count 316 th/mm3 (150-450); Red Blood Count 3.39 mil/mm3 (4.50-5.90); Red Cell Distribution Width 13.4 % (11.6-17.2); White Blood Count 13.9 th/mm3 (4.0-11.0)
[2017-09-22] MEDS ORDERED: Chlorhexidine Gluconate 2% 1 Pack (2 Cloths) TOPICAL PRN (04:00)
[2017-09-22 04:22] LABS: Calcium 8.2 mg/dL (8.5-10.1); Carbon Dioxide 20.7 meq/L (21.0-32.0); Potassium 3.9 meq/L (3.5-5.1)
[2017-09-22] MEDS: Sod Chloride 0.9% Inj 1,000 ML IV.CONT SCH ×4 (04:39→22:51)
[2017-09-22] MEDS: Chlorhexidine Gluconate 2% 1 Pack (2 Cloths) TOPICAL SCH (04:40)
[2017-09-22] MEDS ORDERED: Insulin Aspart Prot 70/30 1,000 UNITS/10 ML Vial SQ SCH (08:00)
[2017-09-22] MEDS: Vancomycin Inj 1,750 MG in Sodium Chlor 0.9% Inj 500 ML IV.SIG SCH (08:37)
[2017-09-22] MEDS: carBAMazepine 200 MG Tablet PO SCH ×3 (08:37→17:25)
[2017-09-22] MEDS: Insulin NovoLOG Aspart Correctional Sugar Inj SQ SCH ×4 (08:38→21:04)
[2017-09-22] MEDS: Piperacil/Tazo 3.375 GM Premix 50 ML IV.SIG SCH ×3 (08:42→21:05)
[2017-09-22] MEDS ORDERED: Insulin Detemir Inj 1,000 UNIT/10 ML Vial SQ SCH ×2 (09:00→21:00)
[2017-09-22 10:20] LABS: Hemoglobin A1c 12.2 % (4.3-6.0)
--- NOTE | 2017-09-22 10:46 | P.PNFP ---
Subjective Interval history: Patient seen and examined this morning. On DKA protocol overnight. Closed overnight was transitioned to subcutaneous insulin. Patient does report wanting to get out of the restraints, denies any other concerns. Is oriented to person and time, thought he was in [place]. <Jeffreyluis alfredoFrederic bell - 09/22/17 10:45> Results - Labs Result diagrams: 09/22/17 03:31 09/22/17 03:31 <Azam Hoyt - 09/22/17 11:49> Abnormal lab results 09/21/17 09/21/17 09/21/17 Range/Units 11:40 11:40 11:40 WBC 14.0 H (4.0-11.0) th/mm3 RBC 3.62 L (4.50-5.90) mil/mm3 Hgb 10.5 L (13.0-17.0) gm/dL Hct 32.1 L (39.0-51.0) % Neut % (Auto) 78.2 H (16.0-70.0) % Lymph % (Auto) (9.0-44.0) % [place] % (Auto) 10.6 H (0.0-8.0) % Neut # (Auto) 10.9 H (1.8-7.7) th/mm3 [place] # (Auto) 1.5 H (0.0-0.9) th/mm3 ABG pH (7.380-7.420) ABG pCO2 (38-42) mmHg ABG HCO3 (22-26) mmol/L ABG Base Excess (-2-2) mmol/L VBG pH (7.360-7.400) Hemoglobin (12.0-16.0) G/DL Sodium 125 L (136-145) meq/L Chloride 91 L (98-107) meq/L Carbon Dioxide 15.8 L (21.0-32.0) meq/L Anion Gap 18 H (5-15) meq/L BUN 40 H (7-18) mg/dL Creatinine 1.86 H (0.60-1.30) mg/dL Estimated GFR 37 L (>89) mL/min POC Glucose (68-110) mg/dl Random Glucose 600 H* (74-106) mg/dL Hemoglobin A1c 12.2 H (4.3-6.0) % Calcium (8.5-10.1) mg/dL AST 13 L (15-37) U/L ALT 11 L (12-78) U/L Troponin I 0.41 H (0.02-0.05) ng/mL Albumin 1.8 L (3.4-5.0) g/dL Lipase (73-393) U/L Beta-Hydroxybutyric Acd (0.00-0.39) mmol/L Urine Clarity (Clear) Urine Protein (Neg-Trace) mg/dL Urine Occult Blood (Negative) Ur Leukocyte Esterase (Negative) Urine RBC (0-3) /hpf Urine WBC (0-5) /hpf Urine Bacteria (None) /hpf Urine Mucus (Occasional) /lpf 09/21/17 09/21/17 09/21/17 Range/Units 11:40 11:51 12:00 WBC (4.0-11.0) th/mm3 RBC (4.50-5.90) mil/mm3 Hgb (13.0-17.0) gm/dL Hct (39.0-51.0) % Neut % (Auto) (16.0-70.0) % Lymph % (Auto) (9.0-44.0) % [place] % (Auto) (0.0-8.0) % Neut # (Auto) (1.8-7.7) th/mm3 [place] # (Auto) (0.0-0.9) th/mm3 ABG pH 7.36 L (7.380-7.420) ABG pCO2 26 L (38-42) mmHg ABG HCO3 14 L* (22-26) mmol/L ABG Base Excess -10.2 L (-2-2) mmol/L VBG pH (7.360-7.400) Hemoglobin 9.8 L (12.0-16.0) G/DL Sodium (136-145) meq/L Chloride (98-107) meq/L Carbon Dioxide (21.0-32.0) meq/L Anion Gap (5-15) meq/L BUN (7-18) mg/dL Creatinine (0.60-1.30) mg/dL Estimated GFR (>89) mL/min POC Glucose (68-110) mg/dl Random Glucose (74-106) mg/dL Hemoglobin A1c (4.3-6.0) % Calcium (8.5-10.1) mg/dL AST (15-37) U/L ALT (12-78) U/L Troponin I (0.02-0.05) ng/mL Albumin (3.4-5.0) g/dL Lipase 71 L (73-393) U/L Beta-Hydroxybutyric Acd 6.30 H (0.00-0.39) mmol/L Urine Clarity Hazy H (Clear) Urine Protein 30 H (Neg-Trace) mg/dL Urine Occult Blood Large H (Negative) Ur Leukocyte Esterase Trace H (Negative) Urine RBC 39 H (0-3) /hpf Urine WBC 24 H (0-5) /hpf Urine Bacteria Occasional H (None) /hpf Urine Mucus Few H (Occasional) /lpf 09/21/17 09/21/17 09/21/17 Range/Units 13:47 18:09 18:52 WBC (4.0-11.0) th/mm3 RBC (4.50-5.90) mil/mm3 Hgb (13.0-17.0) gm/dL Hct (39.0-51.0) % Neut % (Auto) (16.0-70.0) % Lymph % (Auto) (9.0-44.0) % [place] % (Auto) (0.0-8.0) % Neut # (Auto) (1.8-7.7) th/mm3 [place] # (Auto) (0.0-0.9) th/mm3 ABG pH (7.380-7.420) ABG pCO2 (38-42) mmHg ABG HCO3 (22-26) mmol/L ABG Base Excess (-2-2) mmol/L VBG pH (7.360-7.400) Hemoglobin (12.0-16.0) G/DL Sodium (136-145) meq/L Chloride (98-107) meq/L Carbon Dioxide (21.0-32.0) meq/L Anion Gap (5-15) meq/L BUN (7-18) mg/dL Creatinine (0.60-1.30) mg/dL Estimated GFR (>89) mL/min POC Glucose 552 H* 385 H 389 H (68-110) mg/dl Random Glucose (74-106) mg/dL Hemoglobin A1c (4.3-6.0) % Calcium (8.5-10.1) mg/dL AST (15-37) U/L ALT (12-78) U/L Troponin I (0.02-0.05) ng/mL Albumin (3.4-5.0) g/dL Lipase (73-393) U/L Beta-Hydroxybutyric Acd (0.00-0.39) mmol/L Urine Clarity (Clear) Urine Protein (Neg-Trace) mg/dL Urine Occult Blood (Negative) Ur Leukocyte Esterase (Negative) Urine RBC (0-3) /hpf Urine WBC (0-5) /hpf Urine Bacteria (None) /hpf Urine Mucus (Occasional) /lpf 09/21/17 09/21/17 09/21/17 Range/Units 19:43 19:45 19:45 WBC (4.0-11.0) th/mm3 RBC (4.50-5.90) mil/mm3 Hgb (13.0-17.0) gm/dL Hct (39.0-51.0) % Neut % (Auto) (16.0-70.0) % Lymph % (Auto) (9.0-44.0) % [place] % (Auto) (0.0-8.0) % Neut # (Auto) (1.8-7.7) th/mm3 [place] # (Auto) (0.0-0.9) th/mm3 ABG pH (7.380-7.420) ABG pCO2 (38-42) mmHg ABG HCO3 (22-26) mmol/L ABG Base Excess (-2-2) mmol/L VBG pH (7.360-7.400) Hemoglobin (12.0-16.0) G/DL Sodium 133 L (136-145) meq/L Chloride (98-107) meq/L Carbon Dioxide (21.0-32.0) meq/L Anion Gap (5-15) meq/L BUN 36 H (7-18) mg/dL Creatinine 1.77 H (0.60-1.30) mg/dL Estimated GFR 39 L (>89) mL/min POC Glucose 362 H (68-110) mg/dl Random Glucose 319 H D (74-106) mg/dL Hemoglobin A1c (4.3-6.0) % Calcium 8.1 L (8.5-10.1) mg/dL AST (15-37) U/L ALT (12-78) U/L Troponin I 0.39 H (0.02-0.05) ng/mL Albumin (3.4-5.0) g/dL Lipase (73-393) U/L Beta-Hydroxybutyric Acd (0.00-0.39) mmol/L Urine Clarity (Clear) Urine Protein (Neg-Trace) mg/dL Urine Occult Blood (Negative) Ur Leukocyte Esterase (Negative) Urine RBC (0-3) /hpf Urine WBC (0-5) /hpf Urine Bacteria (None) /hpf Urine Mucus (Occasional) /lpf 09/21/17 09/21/17 09/22/17 Range/Units 22:10 23:18 00:01 WBC (4.0-11.0) th/mm3 RBC (4.50-5.90) mil/mm3 Hgb (13.0-17.0) gm/dL Hct (39.0-51.0) % Neut % (Auto) (16.0-70.0) % Lymph % (Auto) (9.0-44.0) % [place] % (Auto) (0.0-8.0) % Neut # (Auto) (1.8-7.7) th/mm3 [place] # (Auto) (0.0-0.9) th/mm3 ABG pH (7.380-7.420) ABG pCO2 (38-42) mmHg ABG HCO3 (22-26) mmol/L ABG Base Excess (-2-2) mmol/L VBG pH (7.360-7.400) Hemoglobin (12.0-16.0) G/DL Sodium (136-145) meq/L Chloride (98-107) meq/L Carbon Dioxide (21.0-32.0) meq/L Anion Gap (5-15) meq/L BUN (7-18) mg/dL Creatinine (0.60-1.30) mg/dL Estimated GFR (>89) mL/min POC Glucose 283 H 195 H 128 H (68-110) mg/dl Random Glucose (74-106) mg/dL Hemoglobin A1c (4.3-6.0) % Calcium (8.5-10.1) mg/dL AST (15-37) U/L ALT (12-78) U/L Troponin I (0.02-0.05) ng/mL Albumin (3.4-5.0) g/dL Lipase (73-393) U/L Beta-Hydroxybutyric Acd (0.00-0.39) mmol/L Urine Clarity (Clear) Urine Protein (Neg-Trace) mg/dL Urine Occult Blood (Negative) Ur Leukocyte Esterase (Negative) Urine RBC (0-3) /hpf Urine WBC (0-5) /hpf Urine Bacteria (None) /hpf Urine Mucus (Occasional) /lpf 09/22/17 09/22/17 09/22/17 Range/Units 00:47 01:19 02:05 WBC (4.0-11.0) th/mm3 RBC (4.50-5.90) mil/mm3 Hgb (13.0-17.0) gm/dL Hct (39.0-51.0) % Neut % (Auto) (16.0-70.0) % Lymph % (Auto) (9.0-44.0) % [place] % (Auto) (0.0-8.0) % Neut # (Auto) (1.8-7.7) th/mm3 [place] # (Auto) (0.0-0.9) th/mm3 ABG pH (7.380-7.420) ABG pCO2 (38-42) mmHg ABG HCO3 (22-26) mmol/L ABG Base Excess (-2-2) mmol/L VBG pH (7.360-7.400) Hemoglobin (12.0-16.0) G/DL Sodium (136-145) meq/L Chloride (98-107) meq/L Carbon Dioxide (21.0-32.0) meq/L Anion Gap (5-15) meq/L BUN 33 H (7-18) mg/dL Creatinine 1.56 H (0.60-1.30) mg/dL Estimated GFR 45 L (>89) mL/min POC Glucose 232 H 252 H (68-110) mg/dl Random Glucose 222 H (74-106) mg/dL Hemoglobin A1c (4.3-6.0) % Calcium 8.2 L (8.5-10.1) mg/dL AST (15-37) U/L ALT (12-78) U/L Troponin I (0.02-0.05) ng/mL Albumin (3.4-5.0) g/dL Lipase (73-393) U/L Beta-Hydroxybutyric Acd (0.00-0.39) mmol/L Urine Clarity (Clear) Urine Protein (Neg-Trace) mg/dL Urine Occult Blood (Negative) Ur Leukocyte Esterase (Negative) Urine RBC (0-3) /hpf Urine WBC (0-5) /hpf Urine Bacteria (None) /hpf Urine Mucus (Occasional) /lpf 09/22/17 09/22/17 09/22/17 Range/Units 03:31 03:31 03:31 WBC 13.9 H (4.0-11.0) th/mm3 RBC 3.39 L (4.50-5.90) mil/mm3 Hgb 9.8 L (13.0-17.0) gm/dL Hct 29.6 L (39.0-51.0) % Neut % (Auto) 79.0 H (16.0-70.0) % Lymph % (Auto) 8.4 L (9.0-44.0) % [place] % (Auto) 10.8 H (0.0-8.0) % Neut # (Auto) 11.0 H (1.8-7.7) th/mm3 [place] # (Auto) 1.5 H (0.0-0.9) th/mm3 ABG pH (7.380-7.420) ABG pCO2 (38-42) mmHg ABG HCO3 (22-26) mmol/L ABG Base Excess (-2-2) mmol/L VBG pH (7.360-7.400) Hemoglobin (12.0-16.0) G/DL Sodium 135 L (136-145) meq/L Chloride (98-107) meq/L Carbon Dioxide 20.7 L (21.0-32.0) meq/L Anion Gap (5-15) meq/L BUN 33 H (7-18) mg/dL Creatinine 1.44 H (0.60-1.30) mg/dL Estimated GFR 49 L (>89) mL/min POC Glucose (68-110) mg/dl Random Glucose 279 H (74-106) mg/dL Hemoglobin A1c (4.3-6.0) % Calcium 8.2 L (8.5-10.1) mg/dL AST (15-37) U/L ALT (12-78) U/L Troponin I (0.02-0.05) ng/mL Albumin (3.4-5.0) g/dL Lipase (73-393) U/L Beta-Hydroxybutyric Acd 3.10 H D (0.00-0.39) mmol/L Urine Clarity (Clear) Urine Protein (Neg-Trace) mg/dL Urine Occult Blood (Negative) Ur Leukocyte Esterase (Negative) Urine RBC (0-3) /hpf Urine WBC (0-5) /hpf Urine Bacteria (None) /hpf Urine Mucus (Occasional) /lpf 09/22/17 09/22/17 Range/Units 10:52 11:09 WBC (4.0-11.0) th/mm3 RBC (4.50-5.90) mil/mm3 Hgb (13.0-17.0) gm/dL Hct (39.0-51.0) % Neut % (Auto) (16.0-70.0) % Lymph % (Auto) (9.0-44.0) % [place] % (Auto) (0.0-8.0) % Neut # (Auto) (1.8-7.7) th/mm3 [place] # (Auto) (0.0-0.9) th/mm3 ABG pH (7.380-7.420) ABG pCO2 (38-42) mmHg ABG HCO3 (22-26) mmol/L ABG Base Excess (-2-2) mmol/L VBG pH 7.32 L (7.360-7.400) Hemoglobin (12.0-16.0) G/DL Sodium (136-145) meq/L Chloride (98-107) meq/L Carbon Dioxide (21.0-32.0) meq/L Anion Gap (5-15) meq/L BUN (7-18) mg/dL Creatinine (0.60-1.30) mg/dL Estimated GFR (>89) mL/min POC Glucose 370 H (68-110) mg/dl Random Glucose (74-106) mg/dL Hemoglobin A1c (4.3-6.0) % Calcium (8.5-10.1) mg/dL AST (15-37) U/L ALT (12-78) U/L Troponin I (0.02-0.05) ng/mL Albumin (3.4-5.0) g/dL Lipase (73-393) U/L Beta-Hydroxybutyric Acd (0.00-0.39) mmol/L Urine Clarity (Clear) Urine Protein (Neg-Trace) mg/dL Urine Occult Blood (Negative) Ur Leukocyte Esterase (Negative) Urine RBC (0-3) /hpf Urine WBC (0-5) /hpf Urine Bacteria (None) /hpf Urine Mucus (Occasional) /lpf Short CBC 09/21/17 09/22/17 Range/Units 11:40 03:31 WBC 14.0 H 13.9 H (4.0-11.0) th/mm3 Hgb 10.5 L 9.8 L (13.0-17.0) gm/dL Hct 32.1 L 29.6 L (39.0-51.0) % Plt Count 318 316 (150-450) th/mm3 [facility] 09/21/17 09/21/17 09/22/17 11:40 19:45 00:47 Sodium 125 L 133 L 137 Potassium 4.4 4.2 4.0 Chloride 91 L 100 D 105 Carbon Dioxide 15.8 L 22.8 24.0 BUN 40 H 36 H 33 H Creatinine 1.86 H 1.77 H 1.56 H Calcium 8.8 8.1 L 8.2 L 09/22/17 03:31 Sodium 135 L Potassium 3.9 Chloride 103 Carbon Dioxide 20.7 L BUN 33 H Creatinine 1.44 H Calcium 8.2 L Cardiac Enzymes 09/21/17 09/21/17 Range/Units 11:40 19:45 Troponin I 0.41 H 0.39 H (0.02-0.05) ng/mL Liver Function 09/21/17 Range/Units 11:40 Total Bilirubin 0.5 (0.2-1.0) mg/dL AST 13 L (15-37) U/L ALT 11 L (12-78) U/L Alkaline Phosphatase 77 (45-117) U/L Albumin 1.8 L (3.4-5.0) g/dL Urine 09/21/17 Range/Units 11:51 Urine Color Yellow (Yellw/Straw) Urine Clarity Hazy H (Clear) Urine pH 5.0 (5.0-8.5) Ur Specific [place] 1.021 (1.002-1.035) Urine Protein 30 H (Neg-Trace) mg/dL Urine Glucose (UA) 500 or greater (Negative) mg/dL <Sepideh Hoyty - 09/22/17 11:49> Abnormal lab results 09/21/17 09/21/17 09/21/17 Range/Units 11:40 11:40 11:40 WBC 14.0 H (4.0-11.0) th/mm3 RBC 3.62 L (4.50-5.90) mil/mm3 Hgb 10.5 L (13.0-17.0) gm/dL Hct 32.1 L (39.0-51.0) % Neut % (Auto) 78.2 H (16.0-70.0) % Lymph % (Auto) (9.0-44.0) % [place] % (Auto) 10.6 H (0.0-8.0) % Neut # (Auto) 10.9 H (1.8-7.7) th/mm3 [place] # (Auto) 1.5 H (0.0-0.9) th/mm3 ABG pH (7.380-7.420) ABG pCO2 (38-42) mmHg ABG HCO3 (22-26) mmol/L ABG Base Excess (-2-2) mmol/L Hemoglobin (12.0-16.0) G/DL Sodium 125 L (136-145) meq/L Chloride 91 L (98-107) meq/L Carbon Dioxide 15.8 L (21.0-32.0) meq/L Anion Gap 18 H (5-15) meq/L BUN 40 H (7-18) mg/dL Creatinine 1.86 H (0.60-1.30) mg/dL Estimated GFR 37 L (>89) mL/min POC Glucose (68-110) mg/dl Random Glucose 600 H* (74-106) mg/dL Calcium (8.5-10.1) mg/dL AST 13 L (15-37) U/L ALT 11 L (12-78) U/L Troponin I 0.41 H (0.02-0.05) ng/mL Albumin 1.8 L (3.4-5.0) g/dL Lipase 71 L (73-393) U/L Beta-Hydroxybutyric Acd 6.30 H (0.00-0.39) mmol/L Urine Clarity (Clear) Urine Protein (Neg-Trace) mg/dL Urine Occult Blood (Negative) Ur Leukocyte Esterase (Negative) Urine RBC (0-3) /hpf Urine WBC (0-5) /hpf Urine Bacteria (None) /hpf Urine Mucus (Occasional) /lpf 09/21/17 09/21/17 09/21/17 Range/Units 11:51 12:00 13:47 WBC (4.0-11.0) th/mm3 RBC (4.50-5.90) mil/mm3 Hgb (13.0-17.0) gm/dL Hct (39.0-51.0) % Neut % (Auto) (16.0-70.0) % Lymph % (Auto) (9.0-44.0) % [place] % (Auto) (0.0-8.0) % Neut # (Auto) (1.8-7.7) th/mm3 [place] # (Auto) (0.0-0.9) th/mm3 ABG pH 7.36 L (7.380-7.420) ABG pCO2 26 L (38-42) mmHg ABG HCO3 14 L* (22-26) mmol/L ABG Base Excess -10.2 L (-2-2) mmol/L Hemoglobin 9.8 L (12.0-16.0) G/DL Sodium (136-145) meq/L Chloride (98-107) meq/L Carbon Dioxide (21.0-32.0) meq/L Anion Gap (5-15) meq/L BUN (7-18) mg/dL Creatinine (0.60-1.30) mg/dL Estimated GFR (>89) mL/min POC Glucose 552 H* (68-110) mg/dl Random Glucose (74-106) mg/dL Calcium (8.5-10.1) mg/dL AST (15-37) U/L ALT (12-78) U/L Troponin I (0.02-0.05) ng/mL Albumin (3.4-5.0) g/dL Lipase (73-393) U/L Beta-Hydroxybutyric Acd (0.00-0.39) mmol/L Urine Clarity Hazy H (Clear) Urine Protein 30 H (Neg-Trace) mg/dL Urine Occult Blood Large H (Negative) Ur Leukocyte Esterase Trace H (Negative) Urine RBC 39 H (0-3) /hpf Urine WBC 24 H (0-5) /hpf Urine Bacteria Occasional H (None) /hpf Urine Mucus Few H (Occasional) /lpf 09/21/17 09/21/17 09/21/17 Range/Units 18:09 18:52 19:43 WBC (4.0-11.0) th/mm3 RBC (4.50-5.90) mil/mm3 Hgb (13.0-17.0) gm/dL Hct (39.0-51.0) % Neut % (Auto) (16.0-70.0) % Lymph % (Auto) (9.0-44.0) % [place] % (Auto) (0.0-8.0) % Neut # (Auto) (1.8-7.7) th/mm3 [place] # (Auto) (0.0-0.9) th/mm3 ABG pH (7.380-7.420) ABG pCO2 (38-42) mmHg ABG HCO3 (22-26) mmol/L ABG Base Excess (-2-2) mmol/L Hemoglobin (12.0-16.0) G/DL Sodium (136-145) meq/L Chloride (98-107) meq/L Carbon Dioxide (21.0-32.0) meq/L Anion Gap (5-15) meq/L BUN (7-18) mg/dL Creatinine (0.60-1.30) mg/dL Estimated GFR (>89) mL/min POC Glucose 385 H 389 H 362 H (68-110) mg/dl Random Glucose (74-106) mg/dL Calcium (8.5-10.1) mg/dL AST (15-37) U/L ALT (12-78) U/L Troponin I (0.02-0.05) ng/mL Albumin (3.4-5.0) g/dL Lipase (73-393) U/L Beta-Hydroxybutyric Acd (0.00-0.39) mmol/L Urine Clarity (Clear) Urine Protein (Neg-Trace) mg/dL Urine Occult Blood (Negative) Ur Leukocyte Esterase (Negative) Urine RBC (0-3) /hpf Urine WBC (0-5) /hpf Urine Bacteria (None) /hpf Urine Mucus (Occasional) /lpf 09/21/17 09/21/17 09/21/17 Range/Units 19:45 19:45 22:10 WBC (4.0-11.0) th/mm3 RBC (4.50-5.90) mil/mm3 Hgb (13.0-17.0) gm/dL Hct (39.0-51.0) % Neut % (Auto) (16.0-70.0) % Lymph % (Auto) (9.0-44.0) % [place] % (Auto) (0.0-8.0) % Neut # (Auto) (1.8-7.7) th/mm3 [place] # (Auto) (0.0-0.9) th/mm3 ABG pH (7.380-7.420) ABG pCO2 (38-42) mmHg ABG HCO3 (22-26) mmol/L ABG Base Excess (-2-2) mmol/L Hemoglobin (12.0-16.0) G/DL Sodium 133 L (136-145) meq/L Chloride (98-107) meq/L Carbon Dioxide (21.0-32.0) meq/L Anion Gap (5-15) meq/L BUN 36 H (7-18) mg/dL Creatinine 1.77 H (0.60-1.30) mg/dL Estimated GFR 39 L (>89) mL/min POC Glucose 283 H (68-110) mg/dl Random Glucose 319 H D (74-106) mg/dL Calcium 8.1 L (8.5-10.1) mg/dL AST (15-37) U/L ALT (12-78) U/L Troponin I 0.39 H (0.02-0.05) ng/mL Albumin (3.4-5.0) g/dL Lipase (73-393) U/L Beta-Hydroxybutyric Acd (0.00-0.39) mmol/L Urine Clarity (Clear) Urine Protein (Neg-Trace) mg/dL Urine Occult Blood (Negative) Ur Leukocyte Esterase (Negative) Urine RBC (0-3) /hpf Urine WBC (0-5) /hpf Urine Bacteria (None) /hpf Urine Mucus (Occasional) /lpf 09/21/17 09/22/17 09/22/17 Range/Units 23:18 00:01 00:47 WBC (4.0-11.0) th/mm3 RBC (4.50-5.90) mil/mm3 Hgb (13.0-17.0) gm/dL Hct (39.0-51.0) % Neut % (Auto) (16.0-70.0) % Lymph % (Auto) (9.0-44.0) % [place] % (Auto) (0.0-8.0) % Neut # (Auto) (1.8-7.7) th/mm3 [place] # (Auto) (0.0-0.9) th/mm3 ABG pH (7.380-7.420) ABG pCO2 (38-42) mmHg ABG HCO3 (22-26) mmol/L ABG Base Excess (-2-2) mmol/L Hemoglobin (12.0-16.0) G/DL Sodium (136-145) meq/L Chloride (98-107) meq/L Carbon Dioxide (21.0-32.0) meq/L Anion Gap (5-15) meq/L BUN 33 H (7-18) mg/dL Creatinine 1.56 H (0.60-1.30) mg/dL Estimated GFR 45 L (>89) mL/min POC Glucose 195 H 128 H (68-110) mg/dl Random Glucose 222 H (74-106) mg/dL Calcium 8.2 L (8.5-10.1) mg/dL AST (15-37) U/L ALT (12-78) U/L Troponin I (0.02-0.05) ng/mL Albumin (3.4-5.0) g/dL Lipase (73-393) U/L Beta-Hydroxybutyric Acd (0.00-0.39) mmol/L Urine Clarity (Clear) Urine Protein (Neg-Trace) mg/dL Urine Occult Blood (Negative) Ur Leukocyte Esterase (Negative) Urine RBC (0-3) /hpf Urine WBC (0-5) /hpf Urine Bacteria (None) /hpf Urine Mucus (Occasional) /lpf 09/22/17 09/22/17 09/22/17 Range/Units 01:19 02:05 03:31 WBC (4.0-11.0) th/mm3 RBC (4.50-5.90) mil/mm3 Hgb (13.0-17.0) gm/dL Hct (39.0-51.0) % Neut % (Auto) (16.0-70.0) % Lymph % (Auto) (9.0-44.0) % [place] % (Auto) (0.0-8.0) % Neut # (Auto) (1.8-7.7) th/mm3 [place] # (Auto) (0.0-0.9) th/mm3 ABG pH (7.380-7.420) ABG pCO2 (38-42) mmHg ABG HCO3 (22-26) mmol/L ABG Base Excess (-2-2) mmol/L Hemoglobin (12.0-16.0) G/DL Sodium 135 L (136-145) meq/L Chloride (98-107) meq/L Carbon Dioxide 20.7 L (21.0-32.0) meq/L Anion Gap (5-15) meq/L BUN 33 H (7-18) mg/dL Creatinine 1.44 H (0.60-1.30) mg/dL Estimated GFR 49 L (>89) mL/min POC Glucose 232 H 252 H (68-110) mg/dl Random Glucose 279 H (74-106) mg/dL Calcium 8.2 L (8.5-10.1) mg/dL AST (15-37) U/L ALT (12-78) U/L Troponin I (0.02-0.05) ng/mL Albumin (3.4-5.0) g/dL Lipase (73-393) U/L Beta-Hydroxybutyric Acd (0.00-0.39) mmol/L Urine Clarity (Clear) Urine Protein (Neg-Trace) mg/dL Urine Occult Blood (Negative) Ur Leukocyte Esterase (Negative) Urine RBC (0-3) /hpf Urine WBC (0-5) /hpf Urine Bacteria (None) /hpf Urine Mucus (Occasional) /lpf 09/22/17 Range/Units 03:31 WBC 13.9 H (4.0-11.0) th/mm3 RBC 3.39 L (4.50-5.90) mil/mm3 Hgb 9.8 L (13.0-17.0) gm/dL Hct 29.6 L (39.0-51.0) % Neut % (Auto) 79.0 H (16.0-70.0) % Lymph % (Auto) 8.4 L (9.0-44.0) % [place] % (Auto) 10.8 H (0.0-8.0) % Neut # (Auto) 11.0 H (1.8-7.7) th/mm3 [place] # (Auto) 1.5 H (0.0-0.9) th/mm3 ABG pH (7.380-7.420) ABG pCO2 (38-42) mmHg ABG HCO3 (22-26) mmol/L ABG Base Excess (-2-2) mmol/L Hemoglobin (12.0-16.0) G/DL Sodium (136-145) meq/L Chloride (98-107) meq/L Carbon Dioxide (21.0-32.0) meq/L Anion Gap (5-15) meq/L BUN (7-18) mg/dL Creatinine (0.60-1.30) mg/dL Estimated GFR (>89) mL/min POC Glucose (68-110) mg/dl Random Glucose (74-106) mg/dL Calcium (8.5-10.1) mg/dL AST (15-37) U/L ALT (12-78) U/L Troponin I (0.02-0.05) ng/mL Albumin (3.4-5.0) g/dL Lipase (73-393) U/L Beta-Hydroxybutyric Acd (0.00-0.39) mmol/L Urine Clarity (Clear) Urine Protein (Neg-Trace) mg/dL Urine Occult Blood (Negative) Ur Leukocyte Esterase (Negative) Urine RBC (0-3) /hpf Urine WBC (0-5) /hpf Urine Bacteria (None) /hpf Urine Mucus (Occasional) /lpf Short CBC 09/21/17 09/22/17 Range/Units 11:40 03:31 WBC 14.0 H 13.9 H (4.0-11.0) th/mm3 Hgb 10.5 L 9.8 L (13.0-17.0) gm/dL Hct 32.1 L 29.6 L (39.0-51.0) % Plt Count 318 316 (150-450) th/mm3 BMP 09/21/17 09/21/17 09/22/17 11:40 19:45 00:47 Sodium 125 L 133 L 137 Potassium 4.4 4.2 4.0 Chloride 91 L 100 D 105 Carbon Dioxide 15.8 L 22.8 24.0 BUN 40 H 36 H 33 H Creatinine 1.86 H 1.77 H 1.56 H Calcium 8.8 8.1 L 8.2 L 09/22/17 03:31 Sodium 135 L Potassium 3.9 Chloride 103 Carbon Dioxide 20.7 L BUN 33 H Creatinine 1.44 H Calcium 8.2 L Cardiac Enzymes 09/21/17 09/21/17 Range/Units 11:40 19:45 Troponin I 0.41 H 0.39 H (0.02-0.05) ng/mL Liver Function 09/21/17 Range/Units 11:40 Total Bilirubin 0.5 (0.2-1.0) mg/dL AST 13 L (15-37) U/L ALT 11 L (12-78) U/L Alkaline Phosphatase 77 (45-117) U/L Albumin 1.8 L (3.4-5.0) g/dL Urine 09/21/17 Range/Units 11:51 Urine Color Yellow (Yellw/Straw) Urine Clarity Hazy H (Clear) Urine pH 5.0 (5.0-8.5) Ur Specific [place] 1.021 (1.002-1.035) Urine Protein 30 H (Neg-Trace) mg/dL Urine Glucose (UA) 500 or greater (Negative) mg/dL <Frederic Tavera - 09/22/17 10:45> - Imaging Impressions Chest X-Ray 09/21/17 11:29 CONCLUSION: No acute cardiopulmonary disease. 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 Extensive opacification of the patient's right nasal cavity extending into the nasopharynx and possibility of a nasopharyngeal mass or sinonasal polyposis should be entertained and the right maxillary sinus completely opacified also due to chronic sinusitis. <Azam Hoyt - 09/22/17 11:49> Impressions Chest X-Ray 09/21/17 11:29 CONCLUSION: No acute cardiopulmonary disease. 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 Extensive opacification of the patient's right nasal cavity extending into the nasopharynx and possibility of a nasopharyngeal mass or sinonasal polyposis should be entertained and the right maxillary sinus completely opacified also due to chronic sinusitis. <Frdeeric Tavera - 09/22/17 10:45> Physical Exam Vital signs: Vital Signs 09/21/17 12:44 09/21/17 13:30 09/21/17 13:44 Temperature Pulse Rate 78 81 81 Respiratory Rate 16 16 17 Blood Pressure 174/84 H 170/85 H 168/89 H Pulse Oximetry 100 100 100 09/21/17 15:00 09/21/17 16:55 09/21/17 18:00 Temperature 98.3 F Pulse Rate 81 68 Respiratory Rate 18 16 19 Blood Pressure 162/78 H 177/81 H Pulse Oximetry 99 99 09/21/17 20:00 09/21/17 21:00 09/21/17 22:00 Temperature 98 F Pulse Rate 65 65 69 Respiratory Rate 19 18 21 Blood Pressure 144/81 H 150/69 H 169/81 H Pulse Oximetry 98 99 96 09/21/17 23:00 09/22/17 00:00 09/22/17 01:00 Temperature 97.9 F Pulse Rate 71 77 69 Respiratory Rate 20 22 19 Blood Pressure 161/7 H 120/70 145/84 H Pulse Oximetry 92 L 98 97 09/22/17 02:00 09/22/17 03:00 09/22/17 04:00 Temperature 97.8 F Pulse Rate 88 71 82 Respiratory Rate 24 19 14 Blood Pressure 176/82 H 139/80 189/93 H Pulse Oximetry 98 100 09/22/17 05:00 09/22/17 06:00 09/22/17 08:00 Temperature Pulse Rate 82 85 Respiratory Rate 14 20 Blood Pressure 189/93 H 180/88 H Pulse Oximetry 97 99 Intake & Output 09/21/17 09/22/17 09/22/17 18:59 06:59 18:59 Intake Total 1150 / 1150 2800 / 2800 1050 / 1050 Output Total 0 / 0 Balance 1150 / 1150 2800 / 2800 1050 / 1050 Weight 101.605 kg 103.5 kg Intake: IV 1150 / 1150 2800 / 2800 1050 / 1050 D5W/Normal Saline Inj 1,000 ML 500 / 500 @ 200 mls/hr IV.CONT .Q5H ANCA Rx#:[id number] NS Inj 1,000 ML @ 140 mls/hr IV 2000 / 2000 1000 / 1000 .CONT .Q7H9M ANCA Rx#:[id number] Zosyn 3.375 GM Premix 50 ML @ 50 / 50 50 / 50 100 mls/hr IV.SIG Q6H ANCA Rx#: [id number] KCl 20 mEq Premix Inj 20 meq In 100 / 100 200 / 200 100 ml @ 50 mls/hr IV.SIG Q2H PRN Rx#:[id number] NS Inj 1,000 ML @ Wide Open IV. 1000 / 1000 SIG BOLUS ONE Rx#:[id number] Rocephin Inj 1,000 MG In NS Inj 100 / 100 100 ML @ 200 mls/hr IV.SIG Q24H ANCA Rx#:[id number] Oral 0 / 0 Output: Urine 0 / 0 Other: # Voids 3 # Bowel Movements 0 <Azam Hoyt - 09/22/17 11:49> Vital Signs 09/21/17 11:09 09/21/17 11:30 09/21/17 12:44 Temperature 98.6 F Pulse Rate 95 H 81 78 Respiratory Rate 17 18 16 Blood Pressure 157/84 H 177/90 H 174/84 H Pulse Oximetry 99 98 100 09/21/17 13:30 09/21/17 13:44 09/21/17 15:00 Temperature Pulse Rate 81 81 81 Respiratory Rate 16 17 18 Blood Pressure 170/85 H 168/89 H 162/78 H Pulse Oximetry 100 100 99 09/21/17 16:55 09/21/17 18:00 09/21/17 20:00 Temperature 98.3 F 98 F Pulse Rate 68 65 Respiratory Rate 16 19 19 Blood Pressure 177/81 H 144/81 H Pulse Oximetry 99 98 09/21/17 21:00 09/21/17 22:00 09/21/17 23:00 Temperature Pulse Rate 65 69 71 Respiratory Rate 18 21 20 Blood Pressure 150/69 H 169/81 H 161/7 H Pulse Oximetry 99 96 92 L 09/22/17 00:00 09/22/17 01:00 09/22/17 02:00 Temperature 97.9 F Pulse Rate 77 69 88 Respiratory Rate 22 19 24 Blood Pressure 120/70 145/84 H 176/82 H Pulse Oximetry 98 97 98 09/22/17 03:00 09/22/17 04:00 09/22/17 05:00 Temperature 97.8 F Pulse Rate 71 82 82 Respiratory Rate 19 14 14 Blood Pressure 139/80 189/93 H 189/93 H Pulse Oximetry 100 97 09/22/17 06:00 Temperature Pulse Rate 85 Respiratory Rate 20 Blood Pressure 180/88 H Pulse Oximetry Intake & Output 09/21/17 09/22/17 09/22/17 18:59 06:59 18:59 Intake Total 1150 / 1150 2800 / 2800 1000 / 1000 Output Total 0 / 0 Balance 1150 / 1150 2800 / 2800 1000 / 1000 Weight 101.605 kg 103.5 kg Intake: IV 1150 / 1150 2800 / 2800 1000 / 1000 D5W/Normal Saline Inj 1,000 ML 500 / 500 @ 200 mls/hr IV.CONT .Q5H ANCA Rx#:[id number] NS Inj 1,000 ML @ 140 mls/hr IV 2000 / 2000 1000 / 1000 .CONT .Q7H9M ANCA Rx#:[id number] Zosyn 3.375 GM Premix 50 ML @ 50 / 50 100 mls/hr IV.SIG ONCE ONE Rx#: [id number] KCl 20 mEq Premix Inj 20 meq In 100 / 100 200 / 200 100 ml @ 50 mls/hr IV.SIG Q2H PRN Rx#:[id number] NS Inj 1,000 ML @ Wide Open IV. 1000 / 1000 SIG BOLUS ONE Rx#:[id number] Rocephin Inj 1,000 MG In NS Inj 100 / 100 100 ML @ 200 mls/hr IV.SIG Q24H ANCA Rx#:[id number] Oral 0 / 0 Output: Urine 0 / 0 Other: # Voids 3 # Bowel Movements 0 <Frederic Tavera - 09/22/17 10:45> Narrative: GENERAL: Lying in bed, NAD. SKIN: Warm and dry. HEAD: Atraumatic. Normocephalic. EYES: Pupils equal and round. No scleral icterus. No injection or drainage. ENT: Dried blood around right nare. MMM CARDIOVASCULAR: Regular rate and rhythm. RESPIRATORY: No accessory muscle use. Clear to auscultation. Breath sounds equal bilaterally. GASTROINTESTINAL: Abdomen soft, non-tender, nondistended. MUSCULOSKELETAL: Extremities without clubbing, cyanosis, or edema. No obvious deformities. NEUROLOGICAL: Awake and alert. Equal strength and motor function bilaterally. No focal neuro deficit noted. Oriented to person and time. <Frederic Tavera - 09/22/17 10:45> Assessment and Plan - Assessment (1) Sepsis Code(s): A41.9 - Sepsis, unspecified organism Status: Acute (2) Bacteremia Code(s): R78.81 - Bacteremia Status: Acute (3) DKA (diabetic ketoacidoses) Code(s): E13.10 - Other specified diabetes mellitus with ketoacidosis without coma Status: Acute (4) Chronic sinusitis Code(s): J32.9 - Chronic sinusitis, unspecified Status: Acute (5) Acute UTI Code(s): N39.0 - Urinary tract infection, site not specified Status: Acute (6) Weakness Code(s): R53.1 - Weakness Status: Acute (7) Elevated troponin Code(s): R74.8 - Abnormal levels of other serum enzymes Status: Acute (8) Hyponatremia Code(s): E87.1 - Hypo-osmolality and hyponatremia Status: Acute (9) History of seizure Code(s): Z87.898 - Personal history of other specified conditions Status: Chronic (10) Hypothyroid Code(s): E03.9 - Hypothyroidism, unspecified Status: Chronic (11) HTN (hypertension) Code(s): I10 - Essential (primary) hypertension Status: Chronic (12) HLD (hyperlipidemia) Code(s): E78.5 - Hyperlipidemia, unspecified Status: Chronic <Azam Hoyt - 09/22/17 11:49> (1) Sepsis Code(s): A41.9 - Sepsis, unspecified organism Status: Acute Plan: Patient initially admitted with elevated WBC of 14 and tachycardia. Patient found to have UTI and was started on Zosyn. Blood cultures returned positive today for gram-positive cocci. -Added Vancomycin, pharmacy consulted (09/22 - ) -Continue Zosyn 3.375g q6H (09/21 - ) -F/u blood cultures -Monitor vitals (2) Bacteremia Code(s): R78.81 - Bacteremia Status: Acute Plan: Blood cultures from 09/21 positive for gram+ cocci F/u growth Repeat in 24-48H See plan above (3) DKA (diabetic ketoacidoses) Code(s): E13.10 - Other specified diabetes mellitus with ketoacidosis without coma Status: Acute Plan: Patient presented in DKA on arrival with a pH of 7.36, elevated anion gap of 18 with a glucose over 600, increased BUN/creatinine ratio and mental status changes IMC for close monitoring DKA likely cause from dehydration versus sepsis Anion gap closed overnight and was transitioned from IV glucose to SQ Monitor BMP and accucheck Continue IV fluids @ 140mls/hr Continue Levemir & Novolog (4) Chronic sinusitis Code(s): J32.9 - Chronic sinusitis, unspecified Status: Acute Plan: Chronic ear infection/sinusitis verified by CT scan Possible source of bacteremia -Recently had tympanostomy tube in place and is currently draining -Zosyn 3.375g q6H (5) Acute UTI Code(s): N39.0 - Urinary tract infection, site not specified Status: Acute Plan: Urinalysis indicative of UTI -IV antibiotics as above with Zosyn -Urine culture pending (6) Weakness Code(s): R53.1 - Weakness Status: Acute Plan: Left arm weakness similar to previous seizures versus acute neurologic abnormality -Possibly secondary to DKA with neurologic findings -Improved today on exam Treatment for DKA as above -Consider MRI plus/minus EEG once stabilization for DKA occurs Passed swallow study with applesauce (7) Elevated troponin Code(s): R74.8 - Abnormal levels of other serum enzymes Status: Acute Plan: Initial troponin elevated at 0.41 but patient has no complaints of chest pain or EKG findings indicative of ACS -Trend troponins and EKGs; trended down to 0.39 -Most likely due to ANNIE with elevated creatinine and severe dehydration due to DKA (8) Hyponatremia Code(s): E87.1 - Hypo-osmolality and hyponatremia Status: Acute Plan: Hyponatremia of 125 on admission, corrected to 133 allowing for hyperglycemia; up to 135 this AM -Monitor with BMPs every 4 hours with fluid resuscitation and treatment for DKA (9) History of seizure Code(s): Z87.898 - Personal history of other specified conditions Status: Chronic Plan: History of seizures in the past. -Continue home carbamazepine -Will contact family for med rec (10) Hypothyroid Code(s): E03.9 - Hypothyroidism, unspecified Status: Chronic Plan: History of hypothyroidism. -Continue home levothyroxine (11) HTN (hypertension) Code(s): I10 - Essential (primary) hypertension Status: Chronic Plan: History of hypertension. -Continue home hypertension medications (12) HLD (hyperlipidemia) Code(s): E78.5 - Hyperlipidemia, unspecified Status: Chronic Plan: History of hyperlipidemia. -Continue home atorvastatin <Frederic Tavera - 09/22/17 10:25> - Attending Attestation Patient examined independently from the resident physicians and case discussed with resident team I have read the above note and agree with the assessment/plan as discussed with me I was involved in all medical decision making for this patient Azam Hoyt MD <Azam Hoyt - 09/22/17 11:49>
[2017-09-22] MEDS ORDERED: Lisinopril 20 MG Tablet PO ONE (11:30)
[2017-09-22 12:03] LABS: Calcium 8.2 mg/dL (8.5-10.1); Carbon Dioxide 16.3 meq/L (21.0-32.0); Potassium 4.1 meq/L (3.5-5.1)
[2017-09-22] MEDS: Lisinopril 20 MG Tablet PO SCH (12:53)
[2017-09-22] MEDS ORDERED: Insulin Detemir Inj 1,000 UNIT/10 ML Vial SQ ONE (13:04)
[2017-09-22] MEDS ORDERED: SODIUM CHLORIDE 0.9% IV.SIG SCH (18:00)
[2017-09-22] MEDS ORDERED: CEFTRIAXONE IV.SIG SCH (18:00)
--- NOTE | 2017-09-22 19:02 | MG ---
cc: Eliazar Cortez MD EEG [phone] CLINICAL HISTORY: A 67-year-old man with ear infection on the right, left-sided weakness. MEDICATIONS: 1. Insulin. 2. Lipitor. DESCRIPTION: Diffuse low-amplitude beta rhythms are noted. Recording overall is synchronous and symmetric. No hemisphere asymmetries are noted. Specifically, no right temporal lobe abnormalities are seen. Hyperventilation not performed. Photic stimulation is performed with no significant posterior driving. IMPRESSION: Diffuse low-amplitude rhythms often times in the theta range consistent with a mild diffuse encephalopathy, but no focal abnormalities noted. No seizure activity is seen. Specifically, no right temporal lobe abnormalities are noted. MD JEAN CLAUDE Mo/brissa/petty , 06:08 PM , 06:13 PM
[2017-09-22] MEDS: Heparin - SQ 10,000 UNITS/ML Vial SQ SCH (21:03)
[2017-09-23 00:56] LABS: INR 1.1 Ratio; Prothrombin Time 10.8 sec (9.8-11.6)
[2017-09-23 00:57] LABS: Baso # (Auto) 0.1 th/mm3 (0.0-0.2); Baso % (Auto) 0.6 % (0.0-2.0); Eos # (Auto) 0.2 th/mm3 (0.0-0.4); Hematocrit 26.9 % (39.0-51.0); Hemoglobin 9.2 gm/dL (13.0-17.0); Lymph # (Auto) 1.5 th/mm3 (1.0-4.8); Lymph % (Auto) 12.1 % (9.0-44.0); Mean Corpuscular HGB Conc 34.3 % (32.0-36.0); Mean Corpuscular Hemoglobin 29.6 pg (27.0-34.0); Mean Corpuscular Volume 86.3 fL (80.0-100.0); Mean Platelet Volume 7.7 fL (7.0-11.0); Mono # (Auto) 1.1 th/mm3 (0.0-0.9); Neut # (Auto) 9.7 th/mm3 (1.8-7.7); Neut % (Auto) 76.3 % (16.0-70.0); Platelet Count 343 th/mm3 (150-450); Red Blood Count 3.12 mil/mm3 (4.50-5.90); Red Cell Distribution Width 13.4 % (11.6-17.2); White Blood Count 12.6 th/mm3 (4.0-11.0)
[2017-09-23 01:25] LABS: Alanine Aminotransferase 27 U/L (12-78); Albumin 1.7 g/dL (3.4-5.0); Alkaline Phosphatase 78 U/L (45-117); Anion Gap 7 meq/L (5-15); Aspartate Aminotransferase 39 U/L (15-37); Blood Urea Nitrogen 25 mg/dL (7-18); Calcium 8.1 mg/dL (8.5-10.1); Carbon Dioxide 23.1 meq/L (21.0-32.0); Chloride 112 meq/L (98-107); Glomerular Filtration Rate 50 mL/min (>89); Glucose,Random 185 mg/dL (74-106); Potassium 3.5 meq/L (3.5-5.1); Sodium 142 meq/L (136-145)
--- NOTE | 2017-09-23 01:28 | P.PNADD ---
Addendum to Inpatient Note Reason for Addendum: Additional Documentation Additional information: S: Resident team received a stat call at 0030 that patient had come out of his restraints, removed a polyp from his nose, and was bleeding profusely. Arrived immediately to the patient's bedside. Nursing staff informed us that indeed patient had come come out of his restraints and removed a polyp. He then began bleeding profusely which had stopped shortly before we arrived. It was now oozing which nurse report is baseline for pt. Initially, they were concerned about airway protection and began suctioning his throat where they removed a golf ball size clot. Patient stated that he was doing okay. O: Vitals are stable upon entering the room General-obese white male covered in blood moaning, in no acute distress HEENT-large blood clot in right nare, blood in mouth and throat, but not obstructing airway Cardiovascular-RRR, no murmurs, rubs, or gallops detected Respiratory-coarse breath sounds with upper airway transmission, auscultated anteriorly. No increased work of breathing. Extremities-no edema A/P: 67-year-old male with a past medical history of diabetes, hypertension who originally presented to the hospital with increasing weakness and fatigue. Septic on admission likely due to UTI. Blood cultures positive for strep pneumo. Also, found to be in DKA on admission. Status post insulin drip. Bleeding s/p nasal polyp removal -Ordered stat CBC, CMP, PT/INR -Hemoglobin stable at 9.2 -INR WNL -CMP stable -Ordered Afrin spray for the hemostasis of bleeding nasal polyp RADHAW Dr. Solares, Dr. Gloria
[2017-09-23] MEDS: Piperacil/Tazo 3.375 GM Premix 50 ML IV.SIG SCH ×4 (02:07→20:19)
[2017-09-23] MEDS: Chlorhexidine Gluconate 2% 1 Pack (2 Cloths) TOPICAL SCH (03:38)
[2017-09-23] MEDS: Sod Chloride 0.9% Inj 1,000 ML IV.CONT SCH ×3 (05:57→22:37)
[2017-09-23 09:11] LABS: Baso # (Auto) 0.1 th/mm3 (0.0-0.2); Baso % (Auto) 0.8 % (0.0-2.0); Eos # (Auto) 0.2 th/mm3 (0.0-0.4); Eos % (Auto) 1.9 % (0.0-4.0); Hematocrit 26.1 % (39.0-51.0); Hemoglobin 8.8 gm/dL (13.0-17.0); Lymph # (Auto) 1.2 th/mm3 (1.0-4.8); Lymph % (Auto) 13.1 % (9.0-44.0); Mean Corpuscular HGB Conc 33.8 % (32.0-36.0); Mean Corpuscular Hemoglobin 29.6 pg (27.0-34.0); Mean Corpuscular Volume 87.7 fL (80.0-100.0); Mean Platelet Volume 7.8 fL (7.0-11.0); Mono # (Auto) 0.9 th/mm3 (0.0-0.9); Mono % (Auto) 9.6 % (0.0-8.0); Neut # (Auto) 6.8 th/mm3 (1.8-7.7); Neut % (Auto) 74.6 % (16.0-70.0); Platelet Count 298 th/mm3 (150-450); Red Blood Count 2.98 mil/mm3 (4.50-5.90); Red Cell Distribution Width 13.3 % (11.6-17.2); White Blood Count 9.1 th/mm3 (4.0-11.0)
[2017-09-23 09:35] LABS: Carbon Dioxide 21.9 meq/L (21.0-32.0); Phosphorus 2.8 mg/dL (2.5-4.9); Potassium 3.6 meq/L (3.5-5.1)
--- NOTE | 2017-09-23 11:23 | P.PNFP ---
Subjective Interval history: She seen and examined today. Staff report overnight the patient was able to free his hand from the restraints, was picking in his nose and removed a "polyp," may have been a hematoma, with significant bleeding. Resident team came up, administered Afrin which improved bleeding. They also report that his home Lantus is 56 units twice daily, as opposed to the 20 units at bedtime reported by the family patient on the day of admission. The patient denies nausea, vomiting, fever, chills, abdominal pain, chest pain, shortness of breath, lightheadedness, dizziness, headache. Patient without any other acute complaints at this time. Will not elaborate as to why he continues to pick his nose. <Saul Mike - 09/23/17 11:22> Results - Labs Result diagrams: 09/23/17 08:05 09/23/17 08:05 <Azam Hoyt - 09/23/17 16:31> Abnormal lab results 09/22/17 09/23/17 09/23/17 Range/Units 17:23 00:30 00:30 WBC 12.6 H (4.0-11.0) th/mm3 RBC 3.12 L (4.50-5.90) mil/mm3 Hgb 9.2 L (13.0-17.0) gm/dL Hct 26.9 L (39.0-51.0) % Neut % (Auto) 76.3 H (16.0-70.0) % [place] % (Auto) 9.0 H (0.0-8.0) % Neut # (Auto) 9.7 H (1.8-7.7) th/mm3 [place] # (Auto) 1.1 H (0.0-0.9) th/mm3 Chloride 112 H (98-107) meq/L BUN 25 H (7-18) mg/dL Creatinine 1.41 H (0.60-1.30) mg/dL Estimated GFR 50 L (>89) mL/min POC Glucose 214 H (68-110) mg/dl Random Glucose 185 H D (74-106) mg/dL Calcium 8.1 L (8.5-10.1) mg/dL AST 39 H (15-37) U/L Albumin 1.7 L (3.4-5.0) g/dL 09/23/17 09/23/17 09/23/17 Range/Units 08:05 08:05 08:39 WBC (4.0-11.0) th/mm3 RBC 2.98 L (4.50-5.90) mil/mm3 Hgb 8.8 L (13.0-17.0) gm/dL Hct 26.1 L (39.0-51.0) % Neut % (Auto) 74.6 H (16.0-70.0) % [place] % (Auto) 9.6 H (0.0-8.0) % Neut # (Auto) (1.8-7.7) th/mm3 [place] # (Auto) (0.0-0.9) th/mm3 Chloride 112 H (98-107) meq/L BUN 30 H (7-18) mg/dL Creatinine 1.31 H (0.60-1.30) mg/dL Estimated GFR 55 L (>89) mL/min POC Glucose 283 H (68-110) mg/dl Random Glucose 253 H (74-106) mg/dL Calcium 8.0 L (8.5-10.1) mg/dL AST (15-37) U/L Albumin (3.4-5.0) g/dL 09/23/17 09/23/17 Range/Units 14:07 15:32 WBC (4.0-11.0) th/mm3 RBC (4.50-5.90) mil/mm3 Hgb (13.0-17.0) gm/dL Hct (39.0-51.0) % Neut % (Auto) (16.0-70.0) % [place] % (Auto) (0.0-8.0) % Neut # (Auto) (1.8-7.7) th/mm3 [place] # (Auto) (0.0-0.9) th/mm3 Chloride (98-107) meq/L BUN (7-18) mg/dL Creatinine (0.60-1.30) mg/dL Estimated GFR (>89) mL/min POC Glucose 259 H 253 H (68-110) mg/dl Random Glucose (74-106) mg/dL Calcium (8.5-10.1) mg/dL AST (15-37) U/L Albumin (3.4-5.0) g/dL Short CBC 09/23/17 09/23/17 Range/Units 00:30 08:05 WBC 12.6 H 9.1 (4.0-11.0) th/mm3 Hgb 9.2 L 8.8 L (13.0-17.0) gm/dL Hct 26.9 L 26.1 L (39.0-51.0) % Plt Count 343 298 (150-450) th/mm3 BMP 09/23/17 09/23/17 00:30 08:05 Sodium 142 143 Potassium 3.5 3.6 Chloride 112 H 112 H Carbon Dioxide 23.1 21.9 BUN 25 H 30 H Creatinine 1.41 H 1.31 H Calcium 8.1 L 8.0 L Liver Function 09/23/17 Range/Units 00:30 Total Bilirubin 0.2 (0.2-1.0) mg/dL AST 39 H (15-37) U/L ALT 27 (12-78) U/L Alkaline Phosphatase 78 (45-117) U/L Albumin 1.7 L (3.4-5.0) g/dL <Azam Hoyt - 09/23/17 16:31> Abnormal lab results 09/21/17 09/22/17 09/22/17 Range/Units 11:40 10:52 11:09 WBC (4.0-11.0) th/mm3 RBC (4.50-5.90) mil/mm3 Hgb (13.0-17.0) gm/dL Hct (39.0-51.0) % Neut % (Auto) (16.0-70.0) % [place] % (Auto) (0.0-8.0) % Neut # (Auto) (1.8-7.7) th/mm3 [place] # (Auto) (0.0-0.9) th/mm3 VBG pH 7.32 L (7.360-7.400) Chloride (98-107) meq/L Carbon Dioxide (21.0-32.0) meq/L BUN (7-18) mg/dL Creatinine (0.60-1.30) mg/dL Estimated GFR (>89) mL/min POC Glucose 370 H (68-110) mg/dl Random Glucose (74-106) mg/dL Hemoglobin A1c 12.2 H (4.3-6.0) % Calcium (8.5-10.1) mg/dL AST (15-37) U/L Albumin (3.4-5.0) g/dL 09/22/17 09/22/17 09/22/17 Range/Units 11:19 12:56 15:47 WBC (4.0-11.0) th/mm3 RBC (4.50-5.90) mil/mm3 Hgb (13.0-17.0) gm/dL Hct (39.0-51.0) % Neut % (Auto) (16.0-70.0) % [place] % (Auto) (0.0-8.0) % Neut # (Auto) (1.8-7.7) th/mm3 [place] # (Auto) (0.0-0.9) th/mm3 VBG pH (7.360-7.400) Chloride (98-107) meq/L Carbon Dioxide 16.3 L (21.0-32.0) meq/L BUN 29 H (7-18) mg/dL Creatinine 1.45 H (0.60-1.30) mg/dL Estimated GFR 49 L (>89) mL/min POC Glucose 320 H 272 H (68-110) mg/dl Random Glucose 346 H (74-106) mg/dL Hemoglobin A1c (4.3-6.0) % Calcium 8.2 L (8.5-10.1) mg/dL AST (15-37) U/L Albumin (3.4-5.0) g/dL 09/22/17 09/23/17 09/23/17 Range/Units 17:23 00:30 00:30 WBC 12.6 H (4.0-11.0) th/mm3 RBC 3.12 L (4.50-5.90) mil/mm3 Hgb 9.2 L (13.0-17.0) gm/dL Hct 26.9 L (39.0-51.0) % Neut % (Auto) 76.3 H (16.0-70.0) % [place] % (Auto) 9.0 H (0.0-8.0) % Neut # (Auto) 9.7 H (1.8-7.7) th/mm3 [place] # (Auto) 1.1 H (0.0-0.9) th/mm3 VBG pH (7.360-7.400) Chloride 112 H (98-107) meq/L Carbon Dioxide (21.0-32.0) meq/L BUN 25 H (7-18) mg/dL Creatinine 1.41 H (0.60-1.30) mg/dL Estimated GFR 50 L (>89) mL/min POC Glucose 214 H (68-110) mg/dl Random Glucose 185 H D (74-106) mg/dL Hemoglobin A1c (4.3-6.0) % Calcium 8.1 L (8.5-10.1) mg/dL AST 39 H (15-37) U/L Albumin 1.7 L (3.4-5.0) g/dL 09/23/17 09/23/17 09/23/17 Range/Units 08:05 08:05 08:39 WBC (4.0-11.0) th/mm3 RBC 2.98 L (4.50-5.90) mil/mm3 Hgb 8.8 L (13.0-17.0) gm/dL Hct 26.1 L (39.0-51.0) % Neut % (Auto) 74.6 H (16.0-70.0) % [place] % (Auto) 9.6 H (0.0-8.0) % Neut # (Auto) (1.8-7.7) th/mm3 [place] # (Auto) (0.0-0.9) th/mm3 VBG pH (7.360-7.400) Chloride 112 H (98-107) meq/L Carbon Dioxide (21.0-32.0) meq/L BUN 30 H (7-18) mg/dL Creatinine 1.31 H (0.60-1.30) mg/dL Estimated GFR 55 L (>89) mL/min POC Glucose 283 H (68-110) mg/dl Random Glucose 253 H (74-106) mg/dL Hemoglobin A1c (4.3-6.0) % Calcium 8.0 L (8.5-10.1) mg/dL AST (15-37) U/L Albumin (3.4-5.0) g/dL Short CBC 09/23/17 09/23/17 Range/Units 00:30 08:05 WBC 12.6 H 9.1 (4.0-11.0) th/mm3 Hgb 9.2 L 8.8 L (13.0-17.0) gm/dL Hct 26.9 L 26.1 L (39.0-51.0) % Plt Count 343 298 (150-450) th/mm3 BMP 09/22/17 09/23/17 09/23/17 11:19 00:30 08:05 Sodium 137 142 143 Potassium 4.1 3.5 3.6 Chloride 107 112 H 112 H Carbon Dioxide 16.3 L 23.1 21.9 BUN 29 H 25 H 30 H Creatinine 1.45 H 1.41 H 1.31 H Calcium 8.2 L 8.1 L 8.0 L Liver Function 09/23/17 Range/Units 00:30 Total Bilirubin 0.2 (0.2-1.0) mg/dL AST 39 H (15-37) U/L ALT 27 (12-78) U/L Alkaline Phosphatase 78 (45-117) U/L Albumin 1.7 L (3.4-5.0) g/dL <Saul Mike A - 09/23/17 11:22> Physical Exam Vital signs: Vital Signs 09/22/17 17:00 09/22/17 17:30 09/22/17 18:00 Temperature Pulse Rate 89 74 76 Respiratory Rate 18 18 19 Blood Pressure 160/72 H 171/82 H 174/85 H Pulse Oximetry 97 98 98 09/22/17 18:30 09/22/17 19:00 09/22/17 20:00 Temperature 98.2 F Pulse Rate 78 91 H 70 Respiratory Rate 19 22 18 Blood Pressure 165/82 H 160/78 H 178/85 H Pulse Oximetry 94 L 98 96 09/22/17 21:00 09/22/17 22:00 09/22/17 23:00 Temperature Pulse Rate 79 74 79 Respiratory Rate 19 17 20 Blood Pressure 191/90 H 172/89 H 181/95 H Pulse Oximetry 94 L 96 98 09/23/17 00:00 09/23/17 01:00 09/23/17 02:00 Temperature 99.4 F Pulse Rate 74 76 85 Respiratory Rate 19 20 19 Blood Pressure 172/83 H 156/73 H 138/67 Pulse Oximetry 98 96 96 07/30/18 03:00 09/23/17 04:00 09/23/17 05:00 Temperature 98.1 F Pulse Rate 94 H 83 85 Respiratory Rate 18 19 20 Blood Pressure 170/80 H 188/86 H 182/87 H Pulse Oximetry 98 96 98 09/23/17 06:00 09/23/17 08:00 Temperature Pulse Rate 91 H 88 Respiratory Rate 22 21 Blood Pressure 170/89 H Pulse Oximetry 99 Intake & Output 09/22/17 09/23/17 09/23/17 18:59 06:59 18:59 Intake Total 3097.5 / 3097.5 2099 / 2099 1050 / 1050 Output Total 1200 / 1200 Balance 1897.5 / 1897.5 2099 / 2099 1050 / 1050 Weight 103 kg Intake: IV 2617.5 / 2617.5 2099 / 2099 1050 / 1050 NS Inj 1,000 ML @ 140 mls/hr IV 1999 / 1999 1999 / 1999 1000 / 1000 .CONT .Q7H9M [facility] Rx#:[id number] Zosyn 3.375 GM Premix 50 ML @ 100 / 100 100 / 100 50 / 50 100 mls/hr IV.SIG Q6H [facility] Rx#: [id number] Vancomycin Inj 1,750 MG In NS 517.5 / 517.5 Inj 500 ML @ 250 mls/hr IV.SIG Q24H [facility] Rx#:[id number] Oral 480 / 480 0 / 0 Output: Urine 1200 / 1200 Other: # Voids 4 Date of Last Bowel Movement 09/23/17 # Bowel Movements 0 <Azam Hoyt - 09/23/17 16:31> Vital Signs 09/22/17 12:00 09/22/17 13:00 09/22/17 14:00 Temperature 97.6 F Pulse Rate 87 93 H 96 H Respiratory Rate 21 19 19 Blood Pressure 164/87 H 171/90 H Pulse Oximetry 97 97 96 09/22/17 14:49 09/22/17 15:00 09/22/17 16:00 Temperature 97.8 F Pulse Rate 96 H 81 76 Respiratory Rate 19 19 Blood Pressure 149/88 H 144/79 H Pulse Oximetry 96 98 09/22/17 16:19 09/22/17 17:00 09/22/17 17:30 Temperature Pulse Rate 76 89 74 Respiratory Rate 18 18 Blood Pressure 160/72 H 171/82 H Pulse Oximetry 97 98 09/22/17 18:00 09/22/17 18:30 09/22/17 19:00 Temperature 98.2 F Pulse Rate 76 78 91 H Respiratory Rate 19 19 22 Blood Pressure 174/85 H 165/82 H 160/78 H Pulse Oximetry 98 94 L 98 09/22/17 20:00 09/22/17 21:00 09/22/17 22:00 Temperature Pulse Rate 70 79 74 Respiratory Rate 18 19 17 Blood Pressure 178/85 H 191/90 H 172/89 H Pulse Oximetry 96 94 L 96 09/22/17 23:00 09/23/17 00:00 09/23/17 01:00 Temperature 99.4 F Pulse Rate 79 74 76 Respiratory Rate 20 19 20 Blood Pressure 181/95 H 172/83 H 156/73 H Pulse Oximetry 98 98 96 09/23/17 02:00 09/23/17 03:00 09/23/17 04:00 Temperature 98.1 F Pulse Rate 85 94 H 83 Respiratory Rate 19 18 19 Blood Pressure 138/67 170/80 H 188/86 H Pulse Oximetry 96 98 96 09/23/17 05:00 09/23/17 06:00 Temperature Pulse Rate 85 91 H Respiratory Rate 20 22 Blood Pressure 182/87 H 170/89 H Pulse Oximetry 98 99 Intake & Output 09/22/17 09/23/17 09/23/17 18:59 06:59 18:59 Intake Total 3097.5 / 3097.5 2099 / 2099 Output Total 1200 / 1200 Balance 1897.5 / 1897.5 2099 Weight 103 kg Intake: IV 2617.5 / 2617.5 2099 / 2099 NS Inj 1,000 ML @ 140 mls/hr IV 1999 / 1999 1999 / 1999 .CONT .Q7H9M [facility] Rx#:[id number] Zosyn 3.375 GM Premix 50 ML @ 100 / 100 100 / 100 100 mls/hr IV.SIG Q6H [facility] Rx#: [id number] Vancomycin Inj 1,750 MG In NS 517.5 / 517.5 Inj 500 ML @ 250 mls/hr IV.SIG Q24H [facility] Rx#:[id number] Oral 480 / 480 0 / 0 Output: Urine 1200 / 1200 Other: # Voids 4 # Bowel Movements 0 <Saul Mike - 09/23/17 11:22> Narrative: GENERAL: Lying in bed, NAD. Dried and coagulating blood on face and shirt. SKIN: Warm and dry. HEAD: Atraumatic. Normocephalic. EYES: Pupils equal and round. No scleral icterus. No injection or drainage. ENT: Dried blood around left nare, coagulated blood on mustache which appeared to be extending up into the nostril(removed without ill effect). CARDIOVASCULAR: Regular rate and rhythm. RESPIRATORY: No accessory muscle use. Clear to auscultation. Breath sounds equal bilaterally. GASTROINTESTINAL: Abdomen soft, non-tender, nondistended. MUSCULOSKELETAL: Extremities without clubbing, cyanosis, or edema. No obvious deformities. NEUROLOGICAL: Awake and alert. Equal strength and motor function bilaterally. No focal neuro deficit noted. Oriented to person and time. <Saul Mike - 09/23/17 11:22> Assessment and Plan - Assessment (1) Sepsis Code(s): A41.9 - Sepsis, unspecified organism Status: Acute (2) Bacteremia Code(s): R78.81 - Bacteremia Status: Acute (3) DKA (diabetic ketoacidoses) Code(s): E13.10 - Other specified diabetes mellitus with ketoacidosis without coma Status: Acute (4) Epistaxis Code(s): R04.0 - Epistaxis Status: Acute (5) Chronic sinusitis Code(s): J32.9 - Chronic sinusitis, unspecified Status: Acute (6) Acute UTI Code(s): N39.0 - Urinary tract infection, site not specified Status: Acute (7) Weakness Code(s): R53.1 - Weakness Status: Acute (8) Elevated troponin Code(s): R74.8 - Abnormal levels of other serum enzymes Status: Acute (9) Hyponatremia Code(s): E87.1 - Hypo-osmolality and hyponatremia Status: Acute (10) History of seizure Code(s): Z87.898 - Personal history of other specified conditions Status: Chronic (11) Hypothyroid Code(s): E03.9 - Hypothyroidism, unspecified Status: Chronic (12) HTN (hypertension) Code(s): I10 - Essential (primary) hypertension Status: Chronic (13) HLD (hyperlipidemia) Code(s): E78.5 - Hyperlipidemia, unspecified Status: Chronic <Azam Hoyt - 09/23/17 16:31> (1) Sepsis Code(s): A41.9 - Sepsis, unspecified organism Status: Acute Plan: Patient initially admitted with elevated WBC of 14 and tachycardia. Patient found to have UTI and was started on Zosyn. Blood cultures returned positive today for gram-positive cocci, strep pneumoniae , susceptibility to follow -Added Vancomycin, pharmacy consulted (09/22 - ) -Continue Zosyn 3.375g q6H (09/21 - ) -F/u blood cultures susceptibility -Monitor vitals (2) Bacteremia Code(s): R78.81 - Bacteremia Status: Acute Plan: Blood cultures from 09/21 positive for gram+ cocci, strep pneumoniae F/u growth Repeat in 24-48H See plan above (3) DKA (diabetic ketoacidoses) Code(s): E13.10 - Other specified diabetes mellitus with ketoacidosis without coma Status: Acute Plan: Patient presented in DKA on arrival with a pH of 7.36, elevated anion gap of 18 with a glucose over 600, increased BUN/creatinine ratio and mental status changes. Initially noted to be on Lantus 20 at bedtime by patient and family, recently alerted patient is currently on Lantus 56 twice daily. -[facility] for close monitoring -DKA likely cause from dehydration versus sepsis -Anion gap closed and currently on SQ insulin -Lantus 30 units twice daily -Medium sliding scale Monitor BMP and accucheck Continue IV fluids @ 140mls/hr Continue Levemir & Novolog (4) Epistaxis Code(s): R04.0 - Epistaxis Status: Acute Plan: Significant epistaxis. Has had a recent nasal scope outpatient. Chronic sinusitis, chronic otitis. May have manually self removed a nasal polyp on 09/23. Afrin applied with adequate improvement. -follow-up ENT -Continue restraints for now, patient continues to pick at nose (5) Chronic sinusitis Code(s): J32.9 - Chronic sinusitis, unspecified Status: Acute Plan: Chronic ear infection/sinusitis verified by CT scan Possible source of bacteremia -Recently had tympanostomy tube in place and is currently draining -Zosyn 3.375g q6H (6) Acute UTI Code(s): N39.0 - Urinary tract infection, site not specified Status: Acute Plan: Urinalysis indicative of UTI -IV antibiotics as above with Zosyn -Urine culture shows mixed gram-positive ovi, no further workup (7) Weakness Code(s): R53.1 - Weakness Status: Acute Plan: Left arm weakness similar to previous seizures versus acute neurologic abnormality -Possibly secondary to DKA with neurologic findings -Improved today on exam Treatment for DKA as above -Consider MRI plus/minus EEG once stabilization for DKA occurs Difficulty swallowing water 09/23, will have speech swallow evaluation prior to oral intake (8) Elevated troponin Code(s): R74.8 - Abnormal levels of other serum enzymes Status: Acute Plan: Initial troponin elevated at 0.41 but patient has no complaints of chest pain or EKG findings indicative of ACS -Trend troponins and EKGs; trended down to 0.39 -Most likely due to ANNIE with elevated creatinine and severe dehydration due to DKA (9) Hyponatremia Code(s): E87.1 - Hypo-osmolality and hyponatremia Status: Acute Plan: Hyponatremia of 125 on admission, corrected to 133 allowing for hyperglycemia; improved, within normal limit -Monitor daily BMP (10) History of seizure Code(s): Z87.898 - Personal history of other specified conditions Status: Chronic Plan: History of seizures in the past. -Continue home carbamazepine -Will contact family for med rec, nurse reports she will follow-up today (11) Hypothyroid Code(s): E03.9 - Hypothyroidism, unspecified Status: Chronic Plan: History of hypothyroidism. -Continue home levothyroxine (12) HTN (hypertension) Code(s): I10 - Essential (primary) hypertension Status: Chronic Plan: History of hypertension. -We will continue home hypertensive medications following updated reconciled medication list (13) HLD (hyperlipidemia) Code(s): E78.5 - Hyperlipidemia, unspecified Status: Chronic Plan: History of hyperlipidemia. -Continue home atorvastatin <Saul Mike - 09/23/17 11:02> - Attending Attestation Patient examined independently and case discussed with resident physicians I have read the above note and agree with the assessment/plan as discussed with me I was involved in all medical decision making for this patient MRI of the brain ordered to rule out CLINICAL DOCUMENTATION SPEC infection such as meningitis -Continue IV antibiotics as above -Repeat blood cultures to evaluate for clearance of bacteremia Patient has been made n.p.o. after failing a swallow study -Oral medications held and switch to IV Azam Hoyt MD <Azam Hoyt - 09/23/17 16:31>
--- NOTE | 2017-09-23 12:23 | ECG ---
Date Performed: 09/21/2017 Time Performed: 11:29:59 PTAGE: 67 years EKG: ECTOPIC ATRIAL RHYTHM PATTERN CONSISTENT WITH PULMONARY DISEASE ABNORMAL ECG NO PREVIOUS TRACING DOCTOR: John Quintanilla Interpretating Date/Time 09/23/2017 12:23:03
[2017-09-23] MEDS ORDERED: Potassium Chlor 20 mEq Premix 20 MEQ/100 ML PIGGYBACK IV.SIG ONE (16:00)
[2017-09-23] MEDS: Vancomycin Inj 1,750 MG in Sodium Chlor 0.9% Inj 500 ML IV.SIG SCH (16:02)
[2017-09-23] MEDS: Insulin NovoLOG Aspart Correctional Sugar Inj SQ SCH ×4 (16:05→20:19)
[2017-09-23] MEDS: Heparin - SQ 10,000 UNITS/ML Vial SQ SCH ×2 (16:06→20:18)
[2017-09-23] MEDS: Lisinopril 20 MG Tablet PO SCH (16:07)
[2017-09-23] MEDS: carBAMazepine 200 MG Tablet PO SCH ×3 (16:07→19:12)
[2017-09-23] MEDS: STERILE IV.SIG SCH ×2 (17:00)
[2017-09-23] MEDS: DEXTROSE 50% IV.SIG SCH ×2 (17:00)
[2017-09-23] MEDS: WATER IV.SIG SCH ×2 (17:00)
[2017-09-23] MEDS: WATER FOR INJ IV.SIG SCH ×2 (17:00)
[2017-09-23] MEDS ORDERED: hydrALAZINE HCl Inj 20 MG/ML Vial IV.PUSH SCH (18:00)
[2017-09-23] MEDS: Insulin Detemir Inj 1,000 UNIT/10 ML Vial SQ SCH (20:18)
[2017-09-24] MEDS: STERILE IV.SIG SCH ×2 (01:59)
[2017-09-24] MEDS: WATER FOR INJ IV.SIG SCH ×2 (01:59)
[2017-09-24] MEDS: WATER IV.SIG SCH ×2 (01:59)
[2017-09-24] MEDS: DEXTROSE 50% IV.SIG SCH ×2 (01:59)
[2017-09-24] MEDS: Piperacil/Tazo 3.375 GM Premix 50 ML IV.SIG SCH ×4 (03:02→22:04)
[2017-09-24] MEDS: Sod Chloride 0.9% Inj 1,000 ML IV.CONT SCH ×3 (03:03→19:26)
[2017-09-24] MEDS: Chlorhexidine Gluconate 2% 1 Pack (2 Cloths) TOPICAL SCH (03:03)
[2017-09-24 05:52] LABS: Baso # (Auto) 0.1 th/mm3 (0.0-0.2); Baso % (Auto) 0.7 % (0.0-2.0); Eos # (Auto) 0.4 th/mm3 (0.0-0.4); Eos % (Auto) 4.2 % (0.0-4.0); Hematocrit 23.2 % (39.0-51.0); Hemoglobin 7.9 gm/dL (13.0-17.0); Lymph # (Auto) 1.6 th/mm3 (1.0-4.8); Lymph % (Auto) 17.2 % (9.0-44.0); Mean Corpuscular HGB Conc 34.2 % (32.0-36.0); Mean Corpuscular Hemoglobin 29.6 pg (27.0-34.0); Mean Corpuscular Volume 86.8 fL (80.0-100.0); Mean Platelet Volume 7.7 fL (7.0-11.0); Mono # (Auto) 0.9 th/mm3 (0.0-0.9); Mono % (Auto) 9.1 % (0.0-8.0); Neut # (Auto) 6.6 th/mm3 (1.8-7.7); Neut % (Auto) 68.8 % (16.0-70.0); Platelet Count 289 th/mm3 (150-450); Red Blood Count 2.68 mil/mm3 (4.50-5.90); Red Cell Distribution Width 13.6 % (11.6-17.2); White Blood Count 9.5 th/mm3 (4.0-11.0)
[2017-09-24 06:05] LABS: Calcium 8.1 mg/dL (8.5-10.1); Carbon Dioxide 24.5 meq/L (21.0-32.0); Magnesium 1.8 mg/dL (1.5-2.5); Phosphorus 2.7 mg/dL (2.5-4.9); Potassium 3.3 meq/L (3.5-5.1)
[2017-09-24] MEDS ORDERED: Potassium Chlor 20 mEq Premix 20 MEQ/100 ML PIGGYBACK IV.SIG ONE (06:48)
[2017-09-24] MEDS: Heparin - SQ 10,000 UNITS/ML Vial SQ SCH ×2 (08:02→22:04)
[2017-09-24] MEDS: Insulin NovoLOG Aspart Correctional Sugar Inj SQ SCH ×4 (08:02→22:05)
[2017-09-24] MEDS: Vancomycin Inj 1,750 MG in Sodium Chlor 0.9% Inj 500 ML IV.SIG SCH (08:03)
[2017-09-24] MEDS: Insulin Detemir Inj 1,000 UNIT/10 ML Vial SQ SCH (08:03)
--- NOTE | 2017-09-24 09:30 | P.PNFP ---
Subjective Interval history: Patient seen and examined today. Denies nausea, vomiting, fever, chills, don pain, chest pain, shortness of breath, lightheadedness, dizziness. When asked about why he has been picking his nose he states that he is "trying to get situated." Denies any nasal pain, pruritus, sensation of mass. Alert and oriented 3. Nursing staff reports that ENT saw the patient yesterday, likely recommending outpatient follow-up. We will need to follow-up ENT notes. <Saul Mike - 09/24/17 09:30> Results - Labs Result diagrams: 09/24/17 14:45 09/24/17 04:57 <Azam Hoyt - 09/24/17 19:22> Abnormal lab results 09/23/17 09/24/17 09/24/17 Range/Units 20:07 03:12 04:57 RBC 2.68 L (4.50-5.90) mil/mm3 Hgb 7.9 L (13.0-17.0) gm/dL Hct 23.2 L (39.0-51.0) % Warren % (Auto) 9.1 H (0.0-8.0) % Eos % (Auto) 4.2 H (0.0-4.0) % Potassium (3.5-5.1) meq/L Chloride (98-107) meq/L BUN (7-18) mg/dL Estimated GFR (>89) mL/min POC Glucose 238 H 215 H (68-110) mg/dl Random Glucose (74-106) mg/dL Calcium (8.5-10.1) mg/dL 09/24/17 09/24/17 09/24/17 Range/Units 04:57 07:32 12:36 RBC (4.50-5.90) mil/mm3 Hgb (13.0-17.0) gm/dL Hct (39.0-51.0) % Warren % (Auto) (0.0-8.0) % Eos % (Auto) (0.0-4.0) % Potassium 3.3 L (3.5-5.1) meq/L Chloride 112 H (98-107) meq/L BUN 21 H (7-18) mg/dL Estimated GFR 69 L (>89) mL/min POC Glucose 202 H 201 H (68-110) mg/dl Random Glucose 195 H (74-106) mg/dL Calcium 8.1 L (8.5-10.1) mg/dL 09/24/17 09/24/17 Range/Units 14:45 18:14 RBC (4.50-5.90) mil/mm3 Hgb 7.7 L (13.0-17.0) gm/dL Hct 22.9 L (39.0-51.0) % Warren % (Auto) (0.0-8.0) % Eos % (Auto) (0.0-4.0) % Potassium (3.5-5.1) meq/L Chloride (98-107) meq/L BUN (7-18) mg/dL Estimated GFR (>89) mL/min POC Glucose 152 H (68-110) mg/dl Random Glucose (74-106) mg/dL Calcium (8.5-10.1) mg/dL Short CBC 09/24/17 09/24/17 Range/Units 04:57 14:45 WBC 9.5 (4.0-11.0) th/mm3 Hgb 7.9 L 7.7 L (13.0-17.0) gm/dL Hct 23.2 L 22.9 L (39.0-51.0) % Plt Count 289 (150-450) th/mm3 [facility] 09/24/17 04:57 Sodium 143 Potassium 3.3 L Chloride 112 H Carbon Dioxide 24.5 BUN 21 H Creatinine 1.07 Calcium 8.1 L <Azam Hoyt - 09/24/17 19:22> Abnormal lab results 09/23/17 09/23/17 09/23/17 Range/Units 08:05 14:07 15:32 RBC (4.50-5.90) mil/mm3 Hgb (13.0-17.0) gm/dL Hct (39.0-51.0) % Warren % (Auto) (0.0-8.0) % Eos % (Auto) (0.0-4.0) % Potassium (3.5-5.1) meq/L Chloride 112 H (98-107) meq/L BUN 30 H (7-18) mg/dL Creatinine 1.31 H (0.60-1.30) mg/dL Estimated GFR 55 L (>89) mL/min POC Glucose 259 H 253 H (68-110) mg/dl Random Glucose 253 H (74-106) mg/dL Calcium 8.0 L (8.5-10.1) mg/dL 09/23/17 09/24/17 09/24/17 Range/Units 20:07 03:12 04:57 RBC 2.68 L (4.50-5.90) mil/mm3 Hgb 7.9 L (13.0-17.0) gm/dL Hct 23.2 L (39.0-51.0) % Warren % (Auto) 9.1 H (0.0-8.0) % Eos % (Auto) 4.2 H (0.0-4.0) % Potassium (3.5-5.1) meq/L Chloride (98-107) meq/L BUN (7-18) mg/dL Creatinine (0.60-1.30) mg/dL Estimated GFR (>89) mL/min POC Glucose 238 H 215 H (68-110) mg/dl Random Glucose (74-106) mg/dL Calcium (8.5-10.1) mg/dL 09/24/17 09/24/17 Range/Units 04:57 07:32 RBC (4.50-5.90) mil/mm3 Hgb (13.0-17.0) gm/dL Hct (39.0-51.0) % Warren % (Auto) (0.0-8.0) % Eos % (Auto) (0.0-4.0) % Potassium 3.3 L (3.5-5.1) meq/L Chloride 112 H (98-107) meq/L BUN 21 H (7-18) mg/dL Creatinine (0.60-1.30) mg/dL Estimated GFR 69 L (>89) mL/min POC Glucose 202 H (68-110) mg/dl Random Glucose 195 H (74-106) mg/dL Calcium 8.1 L (8.5-10.1) mg/dL Short CBC 09/24/17 Range/Units 04:57 WBC 9.5 (4.0-11.0) th/mm3 Hgb 7.9 L (13.0-17.0) gm/dL Hct 23.2 L (39.0-51.0) % Plt Count 289 (150-450) th/mm3 BMP 09/23/17 09/24/17 08:05 04:57 Sodium 143 143 Potassium 3.6 3.3 L Chloride 112 H 112 H Carbon Dioxide 21.9 24.5 BUN 30 H 21 H Creatinine 1.31 H 1.07 Calcium 8.0 L 8.1 L <Saul Mike A - 09/24/17 09:30> Physical Exam Vital signs: Vital Signs 09/23/17 20:00 09/23/17 21:00 09/23/17 22:00 Temperature 98.6 F Pulse Rate 75 117 H 72 Respiratory Rate 18 26 H 14 Blood Pressure 175/93 H 184/120 H 182/89 H Pulse Oximetry 100 99 09/23/17 23:00 09/24/17 00:00 09/24/17 01:00 Temperature 98.8 F Pulse Rate 74 78 71 Respiratory Rate 20 17 17 Blood Pressure 179/81 H 197/93 H 181/86 H Pulse Oximetry 100 100 100 09/24/17 02:00 09/24/17 03:00 09/24/17 04:00 Temperature 98.6 F Pulse Rate 67 82 75 Respiratory Rate 17 19 19 Blood Pressure 184/82 H 184/81 H 186/84 H Pulse Oximetry 100 100 98 09/24/17 05:00 09/24/17 06:00 09/24/17 07:01 Temperature Pulse Rate 66 76 76 Respiratory Rate 19 20 19 Blood Pressure 177/76 H 193/84 H 192/79 H Pulse Oximetry 97 97 100 09/24/17 07:49 09/24/17 08:00 09/24/17 08:26 Temperature Pulse Rate 65 66 Respiratory Rate 16 18 Blood Pressure 198/79 H 156/77 H Pulse Oximetry 99 98 98 09/24/17 09:00 09/24/17 10:00 09/24/17 11:00 Temperature Pulse Rate 67 64 66 Respiratory Rate 17 17 15 Blood Pressure 180/81 H 166/79 H 161/79 H Pulse Oximetry 99 99 100 09/24/17 12:00 09/24/17 13:00 09/24/17 14:00 Temperature Pulse Rate 71 68 67 Respiratory Rate 16 16 16 Blood Pressure 165/72 H 173/84 H 183/86 H Pulse Oximetry 99 96 95 07/31/18 15:00 09/24/17 16:00 09/24/17 17:00 Temperature Pulse Rate 65 65 70 Respiratory Rate 16 16 18 Blood Pressure 183/82 H 162/79 H 168/78 H Pulse Oximetry 97 98 98 09/24/17 18:00 Temperature Pulse Rate 58 L Respiratory Rate 16 Blood Pressure 176/76 H Pulse Oximetry 99 Intake & Output 09/24/17 09/24/17 09/25/17 06:59 18:59 06:59 Intake Total 2352.5 / 2352.5 50 / 50 Output Total 800 / 800 1900 / 1900 Balance 1552.5 / 1552.5 -1850 / -1850 Weight 105.5 kg Intake: IV 2352.5 / 2352.5 50 / 50 NS Inj 1,000 ML @ 140 mls/hr IV 560 / 560 .CONT .Q7H9M [facility] Rx#:[id number] Vial 25 ML In Sterile 1025 / 1025 Water for Inj 1,000 ML @ 140 mls/hr IV.SIG CONT [facility] Rx#: [id number] Zosyn 3.375 GM Premix 50 ML @ 150 / 150 50 / 50 100 mls/hr IV.SIG Q6H [facility] Rx#: [id number] KCl 20 mEq Premix Inj 20 meq In 100 / 100 100 ml @ 50 mls/hr IV.SIG ONCE ONE Rx#:[id number] Vancomycin Inj 1,750 MG In NS 517.5 / 517.5 Inj 500 ML @ 250 mls/hr IV.SIG Q24H [facility] Rx#:[id number] Oral 0 / 0 0 / 0 Output: Urine 800 / 800 1900 / 1900 Other: # Voids 1 4 # Incontinent Voids 6 0 Date of Last Bowel Movement 09/24/17 # Bowel Movements 0 2 <Azam Hoyt - 09/24/17 19:22> Vital Signs 09/23/17 10:00 09/23/17 11:00 09/23/17 12:00 Temperature Pulse Rate 103 H 81 83 Respiratory Rate 22 18 24 Blood Pressure 167/85 H 152/88 H Pulse Oximetry 99 74 L 09/23/17 12:01 09/23/17 13:00 09/23/17 14:00 Temperature Pulse Rate 81 92 H 71 Respiratory Rate 18 23 17 Blood Pressure 174/84 H 168/79 H 183/88 H Pulse Oximetry 98 100 98 09/23/17 15:00 09/23/17 16:00 09/23/17 17:00 Temperature Pulse Rate 80 79 75 Respiratory Rate 18 17 18 Blood Pressure 182/87 H 168/79 H 193/87 H Pulse Oximetry 91 L 98 99 09/23/17 18:00 09/23/17 19:00 09/23/17 20:00 Temperature 98.6 F Pulse Rate 101 H 71 75 Respiratory Rate 23 14 18 Blood Pressure 164/88 H 166/81 H 175/93 H Pulse Oximetry 99 98 100 09/23/17 21:00 09/23/17 22:00 09/23/17 23:00 Temperature Pulse Rate 117 H 72 74 Respiratory Rate 26 H 14 20 Blood Pressure 184/120 H 182/89 H 179/81 H Pulse Oximetry 99 100 09/24/17 00:00 09/24/17 01:00 09/24/17 02:00 Temperature 98.8 F Pulse Rate 78 71 67 Respiratory Rate 17 17 17 Blood Pressure 197/93 H 181/86 H 184/82 H Pulse Oximetry 100 100 100 09/24/17 03:00 09/24/17 04:00 09/24/17 05:00 Temperature 98.6 F Pulse Rate 82 75 66 Respiratory Rate 19 19 19 Blood Pressure 184/81 H 186/84 H 177/76 H Pulse Oximetry 100 98 97 09/24/17 06:00 09/24/17 07:49 Temperature Pulse Rate 76 Respiratory Rate 20 Blood Pressure 193/84 H Pulse Oximetry 97 99 Intake & Output 09/23/17 09/24/17 09/24/17 18:59 06:59 18:59 Intake Total 1050 / 1050 2352.5 / 2352.5 Output Total 1400 / 1400 800 / 800 Balance -350 / -350 1552.5 / 1552.5 Weight 105.5 kg Intake: IV 1050 / 1050 2352.5 / 2352.5 NS Inj 1,000 ML @ 140 mls/hr IV 1000 / 1000 560 / 560 .CONT .Q7H9M [facility] Rx#:[id number] D50W Vial 25 ML In Sterile 1025 / 1025 Water for Inj 1,000 ML @ 140 mls/hr IV.SIG CONT ANCA Rx#: [id number] Zosyn 3.375 GM Premix 50 ML @ 50 / 50 150 / 150 100 mls/hr IV.SIG Q6H [facility] Rx#: [id number] KCl 20 mEq Premix Inj 20 meq In 100 / 100 100 ml @ 50 mls/hr IV.SIG ONCE ONE Rx#:[id number] Vancomycin Inj 1,750 MG In NS 517.5 / 517.5 Inj 500 ML @ 250 mls/hr IV.SIG Q24H [facility] Rx#:[id number] Oral 0 / 0 Output: Urine 1400 / 1400 800 / 800 Other: # Voids 1 # Incontinent Voids 6 Date of Last Bowel Movement 09/23/17 # Bowel Movements 0 <Saul Mike - 09/24/17 09:30> Narrative: GENERAL: Lying in bed, NAD. SKIN: Warm and dry. HEAD: Atraumatic. Normocephalic. EYES: Pupils equal and round. No scleral icterus. No injection or drainage. ENT: Dried blood around bilateral nares, blood in right ear. CARDIOVASCULAR: Regular rate and rhythm. RESPIRATORY: No accessory muscle use. Clear to auscultation. Breath sounds equal bilaterally. GASTROINTESTINAL: Abdomen soft, non-tender, nondistended. MUSCULOSKELETAL: Extremities without clubbing, cyanosis, or edema. No obvious deformities. NEUROLOGICAL: Awake and alert. Equal strength and motor function bilaterally. No focal neuro deficit noted. Oriented to person, place and time. <Saul Mike - 09/24/17 09:30> Assessment and Plan - Assessment (1) Sepsis Code(s): A41.9 - Sepsis, unspecified organism Status: Acute (2) Bacteremia Code(s): R78.81 - Bacteremia Status: Acute (3) DKA (diabetic ketoacidoses) Code(s): E13.10 - Other specified diabetes mellitus with ketoacidosis without coma Status: Acute (4) Epistaxis Code(s): R04.0 - Epistaxis Status: Acute (5) Chronic sinusitis Code(s): J32.9 - Chronic sinusitis, unspecified Status: Acute (6) Acute UTI Code(s): N39.0 - Urinary tract infection, site not specified Status: Acute (7) Weakness Code(s): R53.1 - Weakness Status: Acute (8) Elevated troponin Code(s): R74.8 - Abnormal levels of other serum enzymes Status: Acute (9) Hyponatremia Code(s): E87.1 - Hypo-osmolality and hyponatremia Status: Acute (10) History of seizure Code(s): Z87.898 - Personal history of other specified conditions Status: Chronic (11) Hypothyroid Code(s): E03.9 - Hypothyroidism, unspecified Status: Chronic (12) HTN (hypertension) Code(s): I10 - Essential (primary) hypertension Status: Chronic (13) HLD (hyperlipidemia) Code(s): E78.5 - Hyperlipidemia, unspecified Status: Chronic <Azam Hoyt - 09/24/17 19:22> (1) Sepsis Code(s): A41.9 - Sepsis, unspecified organism Status: Acute Plan: Patient initially admitted with elevated WBC of 14 and tachycardia. Patient found to have UTI and was started on Zosyn. Blood cultures returned positive today for gram-positive cocci, strep pneumoniae , susceptibility to follow -f/u Cx from 09/23, pending -Added Vancomycin, pharmacy consulted (09/22 - ) -Continue Zosyn 3.375g q6H (09/21 - ) -F/u blood cultures susceptibility -Monitor vitals (2) Bacteremia Code(s): R78.81 - Bacteremia Status: Acute Plan: Blood cultures from 09/21 positive for gram+ cocci, strep pneumoniae -f/u repeat blood cxs See plan above (3) DKA (diabetic ketoacidoses) Code(s): E13.10 - Other specified diabetes mellitus with ketoacidosis without coma Status: Acute Plan: Patient presented in DKA on arrival with a pH of 7.36, elevated anion gap of 18 with a glucose over 600, increased BUN/creatinine ratio and mental status changes. Initially noted to be on Lantus 20 at bedtime by patient and family, recently alerted patient is currently on Lantus 56 twice daily. -IMC for close monitoring -DKA likely cause from dehydration versus sepsis -Anion gap closed and currently on SQ insulin -Lantus 30 units twice daily -Medium sliding scale Monitor BMP and accucheck Continue IV fluids @ 140mls/hr Continue Levemir & Novolog (4) Epistaxis Code(s): R04.0 - Epistaxis Status: Acute Plan: Significant epistaxis. Has had a recent nasal scope outpatient. Chronic sinusitis, chronic otitis. May have manually self removed a nasal polyp on 09/23. Afrin applied with adequate improvement. -follow-up ENT report -Continue restraints for now, patient continues to pick at nose (5) Chronic sinusitis Code(s): J32.9 - Chronic sinusitis, unspecified Status: Acute Plan: Chronic ear infection/sinusitis verified by CT scan Possible source of bacteremia -Recently had tympanostomy tube in place and is currently draining -Zosyn 3.375g q6H (6) Acute UTI Code(s): N39.0 - Urinary tract infection, site not specified Status: Acute Plan: Urinalysis indicative of UTI -IV antibiotics as above with Zosyn -Urine culture shows mixed gram-positive ovi, no further workup (7) Weakness Code(s): R53.1 - Weakness Status: Acute Plan: Left arm weakness similar to previous seizures versus acute neurologic abnormality -Possibly secondary to DKA with neurologic findings -Improved on exam -Attempting to obtain brain MRI, need to verify type of tympanostomy tube, nursing following up Difficulty swallowing water 09/23, will have speech swallow evaluation prior to oral intake (8) Elevated troponin Code(s): R74.8 - Abnormal levels of other serum enzymes Status: Acute Plan: Initial troponin elevated at 0.41 but patient has no complaints of chest pain or EKG findings indicative of ACS -Trend troponins and EKGs; trended down to 0.39 -Most likely due to ANNIE with elevated creatinine and severe dehydration due to DKA (9) Hyponatremia Code(s): E87.1 - Hypo-osmolality and hyponatremia Status: Acute Plan: Hyponatremia of 125 on admission, corrected to 133 allowing for hyperglycemia; improved, within normal limit -Monitor daily BMP (10) History of seizure Code(s): Z87.898 - Personal history of other specified conditions Status: Chronic Plan: History of seizures in the past. -Continue home carbamazepine -Currently NPO, follow up swallow eval, may need to consult neuro to change to IV anti-seizure medication temporarily (11) Hypothyroid Code(s): E03.9 - Hypothyroidism, unspecified Status: Chronic Plan: History of hypothyroidism. -Continue levothyroxine (12) HTN (hypertension) Code(s): I10 - Essential (primary) hypertension Status: Chronic Plan: History of hypertension. -Currently using IV vasotec 2/2 npo status (13) HLD (hyperlipidemia) Code(s): E78.5 - Hyperlipidemia, unspecified Status: Chronic Plan: History of hyperlipidemia. -Continue home atorvastatin, will resume following NPO resolution <Saul Mike - 09/24/17 09:14> - Attending Attestation Pt. examined independently and case discussed with resident physicians. I have read the above note and agree with the assessment and plan as discussed with me. I was involved in all medical decision making for this patient. Azam Hoyt MD <Azam Hoyt - 09/24/17 19:22>
[2017-09-24] MEDS: carBAMazepine 200 MG Tablet PO SCH ×3 (15:31→19:25)
[2017-09-24] MEDS: Lisinopril 20 MG Tablet PO SCH (15:31)
[2017-09-24 15:32] LABS: Hematocrit 22.9 % (39.0-51.0); Hemoglobin 7.7 gm/dL (13.0-17.0)
[2017-09-24] MEDS ORDERED: Insulin Detemir Inj 1,000 UNIT/10 ML Vial SQ SCH (15:37)
--- NOTE | 2017-09-24 17:34 | MB ---
cc: Simón Tate MD DATE: 09/23/2017 CHIEF COMPLAINT: Both epistaxis and bloody ear. HISTORY OF PRESENT ILLNESS: This is a 67-year-old male who has been admitted for diabetic ketoacidosis secondary to uncontrolled diabetes. He is currently in the ICU. He has been evaluated by me at the beginning of August for a bloody, draining ear. He had an ear tube placed by an ENT doctor in [place], as well as 2 CAT scans done in [place] of his sinuses and his nose. Those were not available to me when I saw him in August, nor are they still available now. The patient's as well as the patient reports that outside of his current hospitalization for his diabetes, he has continued to have difficulty with draining of the ear and Saturday had significant nosebleed. Currently, his nose is not bleeding, but his ear has continued to drain. He denies any pain related to his ear other than discomfort from the drainage, as well as the discomfort from the nosebleeds, but however, it has not bled in 3 days. PAST MEDICAL HISTORY: Significant for diabetic ketoacidosis, chronic sinusitis, history of seizure disorder, hypertension, hyperlipidemia, uncontrolled diabetes, hypothyroidism, as well as eustachian tube dysfunction. PAST SURGICAL HISTORY: Significant for the placement of the ear tubes, which from the best I can understand was done as an office procedure. SOCIAL HISTORY: He is a former smoker, not currently using tobacco and has never been a drinker or a user of drugs. MEDICATIONS: Please see the MAR. PHYSICAL EXAMINATION: GENERAL: Today, the patient has dry blood around his nares. HEENT: His ear shows thick mucoid bloody drainage from his right external auditory canal. His nose shows significant excoriations as well as thick blood clots. Flexible endoscopy of his nose today was difficult. There is significant edema and significant bloody drainage. No obvious mass or polyp; however, I am not able to evaluate the entire nasopharynx due to clotting and some excoriations. NECK: Reveals no palpable lymphadenopathy. ASSESSMENT AND PLAN: The patient with epistaxis as well as chronic otitis externa secondary to tympanostomy tube placement. I do think the patient may have something further going on based on the CT scan. I would like to evaluate the 2 CT scans done by the outside ENT back in June for comparative speak. At this time, I recommend nasal saline for a moisturizer for the nose as well as Ciprodex or Cipro HC to the right external auditory canal for the chronic otitis externa, whichever is on formulary. He should have 5 drops twice daily for 10 days. I would like to evaluate him in the office as soon as he is discharged to get what seems to be a chronic tubotympanic otorrhea caused by the retained pressure equalization tube under control by removing the tube in the office. I also would like to evaluate his sinuses in further detail. I am in agreement with the current order for an MRI scan for a possible lesion near his sphenoid sinus unable to evaluate in the nasopharynx at this time. Recommend a followup with ENT immediately after discharge. Simón Tate MD ATT/JUSTINE , 05:15 PM , 05:24 PM
[2017-09-24] MEDS ORDERED: Gadobutrol PF 10 MMOL/10 ML Vial (for RAD) IV.SIG ONE (21:27)
--- NOTE | 2017-09-24 22:15 | MR ---
EXAM DATE: 09/24/2017 9:45 PM EDT AGE/SEX: 67 years / Male INDICATIONS: Altered mental status. Possible intercranial infection and stroke CLINICAL DATA: This is the patient's initial encounter. Patient reports that signs and symptoms have been present for 3 days and indicates a pain score of 7/10. MEDICAL/SURGICAL HISTORY: Diabetes mellitus type II. . Ear tubes. COMPARISON: No prior exams available for comparison. TECHNIQUE: Multiplanar, multisequence examination of the brain was performed without and with 10 ml G adavist (gadobutrol) contrast as a single exam dose. FINDINGS: There are numerous small infarcts posteriorly on the right side including a small acute lacunar infar ct in the posterior right cerebellar hemisphere. Also small subcentimeter infarcts in the right occip ital lobe and right parietal lobe. These all measure up to about 1 cm or less in short axis diameter. Mild to moderate chronic white matter ischemic changes present. There is an enhancing mass in the posterior right nasopharynx measuring up to 4.1 x 2.3 cm. This may be arising from the right parapharyngeal space. The mass does appear to have some early intracranial extension probably through one of the skull base foramina with some dural enhancement on the floor of the middle cranial fossa best seen on the coronal post contrast images. There is associated opacification of the sphenoid sinus and right mastoid air cells and partial opac ification of the ethmoids. Mucosal thickening in the maxillary sinuses. Frontal sinuses clear. On the diffusion-weighted images multiple punctate hemosiderin deposits are noted in the brain bilate rally. CONCLUSION: Numerous small infarcts posteriorly on the right side including a punctate infarct in the right cereb ellar hemisphere and multiple small infarcts in the right occipital lobe and right parietal lobe. No mass effect or midline shift. Enhancing mass in the posterior right nasopharynx measuring up to 4.1 x 2.3 x 2.7 cm. Mass appears to extend into the floor of the right middle cranial fossa with associated dural enhancement. This is c oncerning for malignancy. The inferior extent of the mass is not adequately imaged on this exam admis merle be further evaluated with neck CT with contrast. Sinus disease with opacification of the sphenoid, right mastoid air cells and partial opacification o f the ethmoids. Electronically signed by: Bora Goodwin MD 09/24/2017 10:14 PM EDT
[2017-09-24] MEDS ORDERED: hydrALAZINE 10 MG Tablet PO PRN (22:37)
[2017-09-24] MEDS ORDERED: hydrALAZINE 10 MG Tablet PO ONE (22:42)
[2017-09-25] MEDS: Piperacil/Tazo 3.375 GM Premix 50 ML IV.SIG SCH (02:14)
[2017-09-25] MEDS: Chlorhexidine Gluconate 2% 1 Pack (2 Cloths) TOPICAL SCH (04:00)
[2017-09-25 04:19] VITALS: TEMP 98.3
[2017-09-25] MEDS: Sod Chloride 0.9% Inj 1,000 ML IV.CONT SCH (04:33)
[2017-09-25 05:03] VITALS: BP 147/65; RESP 16; O2SAT 95
[2017-09-25 06:38] LABS: Mean Corpuscular Hemoglobin 28.9 pg (27.0-34.0); Mean Corpuscular Volume 90.1 fL (80.0-100.0); Mean Platelet Volume 7.6 fL (7.0-11.0); Platelet Count 284 th/mm3 (150-450); Red Blood Count 1.88 mil/mm3 (4.50-5.90); White Blood Count 11.9 th/mm3 (4.0-11.0)
[2017-09-25] MEDS ORDERED: Sodium Bicarbonate 8.4% Inj 50 MEQ/50 ML Syringe IV.PUSH ONE (06:40)
[2017-09-25] MEDS ORDERED: Calcium Chloride Inj 1 GM/10 ML Syringe IV.PUSH ONE (06:40)
[2017-09-25 06:54] LABS: Hemoglobin 5.4 gm/dL (13.0-17.0)
[2017-09-25 06:55] LABS: Activated Partial Thrombo Time 24.6 sec (24.3-30.1); INR 1.1 Ratio; Prothrombin Time 11.6 sec (9.8-11.6)
--- NOTE | 2017-09-25 07:04 | P.PNADD ---
Addendum to Inpatient Note Reason for Addendum: Additional Documentation Additional information: Responded to code blue. On arrival shipwright supervisor Dr. Valdovinos at bedside. Patient had been found coughing up large amounts of blood by nurse, then went into asystole/PEA. Code started 0600, resident team arrived 0605. During code patient was intubated and PPV administered. Patient received 11 cycles of epinephrine, 1 amp of calcium, 4 amps of bicarbonate. Rhythm alternated between PEA/asystole for the duration of the code. Unfortunately despite effort no pulse or organized rhythm was achieved and patient was pronounced at 0641. sdw Dr. Miko Valdovinos
--- NOTE | 2017-09-25 07:23 | P.PCN ---
Date of procedure: 09/25/17 Procedure: PROCEDURE NOTE PROCEDURE: Endotracheal intubation INDICATION: Acute respiratory arrest. DETAILS OF PROCEDURE: Arrived at [facility] and RT was suctioning large golf ball size clots from the airway and attempting to ventilate with BVM. I assembled airway equipment. Direct laryngoscopy was performed with a 3 Ceja laryngoscope blade and large clot was adherent and overlying the glottis. This was removed with Yankauer suction while CPR ongoing. Then a grade I Cormack-Lehane view was obtained. On single attempt a size 8.0 endotracheal tube was visualized passing through the cords with minimal interruption of CPR. Correct placement was confirmed with colorimetric CO2 detector. Breath sounds were equal bilaterally. No sounds auscultated over the stomach. The endotracheal tube was secured with a commercial tube gilmore at a depth of 24 cm at the lips. RT continued bagging with BVM.
[2017-09-25 07:25] LABS: Alanine Aminotransferase 28 U/L (12-78); Albumin 1.3 g/dL (3.4-5.0); Anion Gap 8 meq/L (5-15); Aspartate Aminotransferase 42 U/L (15-37); Blood Urea Nitrogen 12 mg/dL (7-18); Calcium 7.6 mg/dL (8.5-10.1); Carbon Dioxide 22.1 meq/L (21.0-32.0); Chloride 117 meq/L (98-107); Glomerular Filtration Rate 71 mL/min (>89); Glucose,Random 123 mg/dL (74-106); Magnesium 1.9 mg/dL (1.5-2.5); Potassium 4.7 meq/L (3.5-5.1); Sodium 147 meq/L (136-145)
[2017-09-25 07:27] LABS: Alkaline Phosphatase 71 U/L (45-117); Total Protein 5.6 g/dL (6.4-8.2)
--- NOTE | 2017-09-25 07:36 | P.PCN ---
Date of procedure: 09/25/17 Procedure: Date: 09/25/17 Procedure: Cardiopulmonary resucitation Indication: Asystole cardiac arrest Details of procedure: Pt developed asystole cardiac arrest. I arrived to [facility] and CPR was ongoing. Airway secured as per separate procedure note. Per ACLS protocol pt received CPR, manual bag-valve ventilation via ETT, epinephrine x 11 mg, CaCl2 1 amp, bicarb 4 amps, 1 L NS wide open. Bronchoscopy was performed in effort to facilitate ventilation as per prior procedure note. After 41 minutes resuscitation we were unable to restore spontaneous circulation, remained in asystole throughout. Pt was pronounced at 06:41 hours. I notified the patients . I discussed with the family medicine team.
--- NOTE | 2017-09-25 07:39 | P.PCN ---
Date of procedure: 09/25/17 Procedure: DATE: 09/25/17 CENTRAL LINE PLACEMENT: Right femoral vein. INDICATION: Central venous access CONSENT Procedure was done emergently as patient has CPR ongoing and in need of IV access. DESCRIPTION OF THE PROCEDURE The patient was in supine position. The right groin was shaved. The skin was cleansed with Chloraprep. Additional barrier precautions included large sterile drape, sterile gloves, sterile gown, face mask, and hat. 1 % lidocaine was used for local anesthesia. The vein was accessed with an introducer needle after single attempt. The guide wire was advanced and the tract was dilated. Using Seldinger technique a 7 Nauruan 20 cm antimicrobial coated triple-lumen catheter was advanced to a depth of 20 cm centimeters. The guide wire was removed. All ports had good return of dark venous blood and flushed easily with saline. The central line was secured with 2.0 silk. A sterile dressing with antibiotic disc was applied. ESTIMATED BLOOD LOSS: Minimal
[2017-09-25 07:52] LABS: ABG Base Excess -7.9 mmol/L (-2-2); ABG PCO2 76 mmHg (38-42); ABG PO2 15 mmHG (61-120)
--- NOTE | 2017-09-25 07:52 | P.PCN ---
Date of procedure: 09/25/17 Procedure: DATE: 09/25/17 PROCEDURE: Right femoral arterial catheter placement INDICATION: CPR DETAILS OF PROCEDURE The patient was placed in supine position. The skin was cleansed with Chloraprep. Additional barrier precautions included large sterile drape, sterile gloves, sterile gown, face mask, and hat. 1% lidocaine was used for local anesthesia. Attempted to access right femoral artery lateral to CVL insertion. Accessed with an introducer needle, uncertain if arterial position, difficult to ascertain because patient is hypoxic and pulseless. The guide wire was advanced. Using Seldinger technique 20 gauge arterial catheter was placed. The guide wire was removed. The catheter was connected to a transducer line and flushed with saline. The video monitor did not display a normal arterial waveform.. The catheter was secured with 2-0 silk. A sterile dressing with antibiotic disc was applied. ESTIMATED BLOOD LOSS: minimal
[2017-09-25 07:58] VITALS: PULSE 0
--- NOTE | 2017-09-25 08:19 | P.PCN ---
Date of procedure: 09/25/17 Procedure: Date: 09/25/17 Procedure: Therapeutic fiberoptic bronchoscopy Indication: Respiratory arrest with asphyxiation and difficulty ventilating. Suspected secondary to airway clots. Details of procedure: Procedure was done emergently as patient is full code and in respiratory arrest and it is in this patient's best interest to proceed with attempts to clear airway to facilitate ventilation. ABG demonstrated hypercapnia despite endotracheal tube in place and bagging patient. Had been suctioning blindly and removing some clots but he was still very difficult to bag. Fiberoptic bronchoscope was advanced into the endotracheal tube. Large clot was removed from the distal aspect of the endotracheal tube. Remove bronchoscope and resumed bagging with more ease.
[2017-09-25 08:51] LABS: Eosinophils 3 % (0-4); Lymphocytes 47 % (9-44); Metamyelocytes 1 % (0-1); Monocytes 3 % (0-8); Myelocytes 3 % (0-0); Promyelocyte 1 % (0-0); Tallied Nucleated RBC 1 (0-0)
[2017-09-25 08:53] LABS: Platelet Estimate Normal (Normal); Platelet Morphology Normal (Normal)
== END 2017-09-25 06:41 | disposition expired ==
LOC: NEPC 11:05 → NEDA 13:21 → HIMC 17:44
PROVIDERS: ADMIT Family Medicine; ATTEND Family Medicine